=== PATIENT | female | born 1965 | race Caucasian/White ===

== ENCOUNTER 2018-03-20 10:23 | Inpatient (IN) ==
[2018-03-20] MEDS ORDERED: MORPHINE 4 MG/1 ML VIAL IV STA (10:48)
[2018-03-20] MEDS ORDERED: ONDANSETRON 4 MG/2 ML VIAL IV STA (10:48)
[2018-03-20] MEDS ORDERED: NITROGLYCERIN 2% OINT 1 INCH/GM PACK TOP STA (10:48)
[2018-03-20 10:56] LABS: Basophils # 0.1 10*3/uL (0.0-0.2); Basophils % 0.6 % (0.0-0.8); Eosinophils # 0.1 10*3/uL (0.0-0.87); Eosinophils % 1.2 % (0.00-10.9); Hematocrit 44.6 VOL% (35.7-47.0); Hemoglobin 15.3 GM/DL (12.0-16.0); Immature Granulocytes % 0.4 %; Immature Granulocytes Absolute 0.05 #; Lymphocytes # 2.8 10*3/uL (1.4-4.0); Lymphocytes % 24.7 % (21.3-54.2); Mean Corpuscular HGB Conc 34.3 GM/DL (32-36); Mean Corpuscular Hemoglobin 30 PG (27-34); Mean Corpuscular Volume 86.9 FL (87-102); Mean Platelet Volume 9.6 FL (9.6-12.0); Monocytes # 0.9 10*3/uL (0.11-0.8); Monocytes % 8.2 % (1.7-12.7); Neutrophils # 7.4 10*3/uL (1.4-7.4); Neutrophils % 64.9 % (38.7-73.9); Platelet Count 255 T/CUMM (130-400); Red Blood Count 5.13 MC/CUMM (3.8-5.5); Red Cell Distribution Width 12.3 % (9.3-17.3); White Blood Count 11.4 T/CUMM (4-12)
[2018-03-20 11:05] LABS: PT Patient Result 10.2 SECS; Partial Thromboplastin Time 28.7 SECS (0-40)
[2018-03-20 11:23] LABS: Albumin 4.2 G/DL (3.4-5.0); Apearance,Urine Slightly Hazy (Clear); Bacteria,Urine Few /HPF (Few); Bilirubin,Total 1.4 MG/DL (0.2-1.0); Bilirubin,Urine Negative (Negative); Blood, Urine Small mg/dL (Negative); Glucose,Urine (UA) Negative (Negative); Ketones,Urine Negative (Negative); Mucus,Urine Occasional /LPF (Occasional); Nitrite,Urine Negative (Negative); Osmolality,Calculated 269.2 MOS/KG (273-304); Potassium 3.8 MMOL/L (3.5-5.1); Protein,Urine Negative; RBC,Urine 3 /HPF (0-4); Squamous Epithelial Cell,Urine Occasional /HPF (0-10); Total Protein 8.1 G/DL (6.4-8.3); Urine Color Yellow (Yellow); Urine Specific Gravity 1.018 (1.001-1.035); Urine Urobilinogen < 2.0 EU/DL (0.2-1.0); WBC,Urine 5 /HPF (0-6)
[2018-03-20 11:27] LABS: Barbiturates Screen,Urine Negative (Negative); Benzodiazepines Screen,Urine Negative (Negative); Cannabinoid Screen,Urine Negative (Negative); Opiate Screen,Urine Negative (Negative); Phencyclidine Screen,Urine Negative (Negative)
[2018-03-20] MEDS ORDERED: ACETAMINOPHEN 325 MG TABLET PO PRN (14:42)
[2018-03-20] MEDS: SODIUM CHLORIDE 0.9% 1,000 ML IV SCH ×2 (14:59→22:35)
[2018-03-20] MEDS: HYDROmorphone 2 MG/1 ML VIAL IV PRN (18:22)
[2018-03-20] MEDS: ONDANSETRON 4 MG/2 ML VIAL IV PRN (18:27)
[2018-03-20] MEDS: DOCUSATE SODIUM 100 MG CAPSULE PO SCH (20:46)
[2018-03-20] MEDS: PANTOPRAZOLE 40 MG VIAL IV SCH (20:46)
[2018-03-21] MEDS: HYDROmorphone 2 MG/1 ML VIAL IV PRN ×4 (01:24→18:55)
[2018-03-21 05:47] LABS: Albumin 3.1 G/DL (3.4-5.0); Basophils # 0.1 10*3/uL (0.0-0.2); Basophils % 0.7 % (0.0-0.8); Bilirubin,Direct 0.23 MG/DL (0.0-0.20); Bilirubin,Indirect 0.9 MG/DL (0.0-1.0); Bilirubin,Total 1.1 MG/DL (0.2-1.0); Calcium 8.2 MG/DL (8.5-10.1); Eosinophils # 0.2 10*3/uL (0.0-0.87); Eosinophils % 2.6 % (0.00-10.9); Hematocrit 35.8 VOL% (35.7-47.0); Immature Granulocytes % 0.3 %; Immature Granulocytes Absolute 0.02 #; Lymphocytes # 2.6 10*3/uL (1.4-4.0); Lymphocytes % 34.1 % (21.3-54.2); Mean Corpuscular HGB Conc 34.6 GM/DL (32-36); Mean Corpuscular Hemoglobin 30 PG (27-34); Mean Corpuscular Volume 87.7 FL (87-102); Mean Platelet Volume 10.3 FL (9.6-12.0); Monocytes # 0.8 10*3/uL (0.11-0.8); Monocytes % 10.4 % (1.7-12.7); Neutrophils # 3.9 10*3/uL (1.4-7.4); Neutrophils % 51.9 % (38.7-73.9); Osmolality,Calculated 273.8 MOS/KG (273-304); Potassium 3.7 MMOL/L (3.5-5.1); Red Cell Distribution Width 12.1 % (9.3-17.3); Total Protein 6.1 G/DL (6.4-8.3)
[2018-03-21 05:49] LABS: Hemoglobin 12.4 GM/DL (12.0-16.0); Platelet Count 180 T/CUMM (130-400); Red Blood Count 4.08 MC/CUMM (3.8-5.5); White Blood Count 7.6 T/CUMM (4-12)
[2018-03-21] MEDS: SODIUM CHLORIDE 0.9% 1,000 ML IV SCH ×2 (08:25→15:47)
[2018-03-21] MEDS ORDERED: PANTOPRAZOLE 40 MG TABLET PO SCH (09:00)
[2018-03-21] MEDS: DOCUSATE SODIUM 100 MG CAPSULE PO SCH ×2 (09:27→21:00)
[2018-03-21] MEDS: LISINOPRIL/HCTZ 20-12.5 MG TABLET PO SCH (09:27)
[2018-03-21] MEDS: PANTOPRAZOLE 40 MG VIAL IV SCH ×2 (09:27→21:00)
[2018-03-22] MEDS: SODIUM CHLORIDE 0.9% 1,000 ML IV SCH ×3 (00:07→16:21)
[2018-03-22] MEDS: HYDROmorphone 2 MG/1 ML VIAL IV PRN ×4 (00:11→21:26)
[2018-03-22] MEDS: DOCUSATE SODIUM 100 MG CAPSULE PO SCH ×2 (09:08→21:15)
[2018-03-22] MEDS: LISINOPRIL/HCTZ 20-12.5 MG TABLET PO SCH (09:08)
[2018-03-22] MEDS: PANTOPRAZOLE 40 MG VIAL IV SCH ×2 (09:08→21:15)
[2018-03-22] MEDS: ONDANSETRON 4 MG/2 ML VIAL IV PRN (21:30)
[2018-03-23] MEDS ORDERED: PROPOFOL 200 MG/20 ML VIAL IV ONE (09:00)
[2018-03-23] MEDS ORDERED: LIDOCAINE 100 MG/5 ML SYRINGE ONE (09:00)
[2018-03-23] MEDS: PANTOPRAZOLE 40 MG VIAL IV SCH (09:31)
[2018-03-23] MEDS: LISINOPRIL/HCTZ 20-12.5 MG TABLET PO SCH (09:31)
[2018-03-23] MEDS: DOCUSATE SODIUM 100 MG CAPSULE PO SCH (09:31)
[2018-03-23 13:47] VITALS: BP 172/088
== END 2018-03-23 15:12 | disposition home or self-care (01) | DRG 440 ==
LOC: N.ED 10:23 → N.EDINP 10:23 → N.2W 14:43 → N.TELES 14:45
PROVIDERS: ADMIT Family Medicine; ATTEND Family Medicine

== ENCOUNTER 2018-10-01 13:13 | Observation (INO) ==
[2018-10-01] MEDS ORDERED: PROMETHAZINE 25 MG/1 ML VIAL IM PRN (13:18)
[2018-10-01] MEDS ORDERED: DEXTROSE 50% 25 GM/50 ML SYRINGE IV PRN (13:18)
[2018-10-01] MEDS ORDERED: GLUCAGON 1 MG VIAL IM PRN (13:18)
[2018-10-01] MEDS ORDERED: ACETAMINOPHEN 325 MG TABLET PO PRN (13:18)
[2018-10-01] MEDS: PANTOPRAZOLE 40 MG VIAL IV SCH ×2 (14:44→20:37)
[2018-10-01] MEDS: ONDANSETRON 4 MG/2 ML VIAL IV PRN ×2 (14:51→20:39)
[2018-10-01] MEDS ORDERED: DEXTROSE 5% NACL 0.9% 1,000 ML IV SCH (15:00)
[2018-10-01 15:24] LABS: Basophils # 0.1 10*3/uL (0.0-0.2); Basophils % 0.6 % (0.0-0.8); Eosinophils # 0.1 10*3/uL (0.0-0.87); Eosinophils % 0.9 % (0.00-10.9); Hematocrit 39.1 VOL% (35.7-47.0); Hemoglobin 13.1 GM/DL (12.0-16.0); Immature Granulocytes % 0.7 %; Immature Granulocytes Absolute 0.09 #; Lymphocytes # 2.4 10*3/uL (1.4-4.0); Lymphocytes % 18.8 % (21.3-54.2); Mean Corpuscular HGB Conc 33.5 GM/DL (32-36); Mean Corpuscular Hemoglobin 29 PG (27-34); Mean Corpuscular Volume 86.7 FL (87-102); Mean Platelet Volume 10.2 FL (9.6-12.0); Monocytes # 1.1 10*3/uL (0.11-0.8); Monocytes % 8.7 % (1.7-12.7); Neutrophils % 70.3 % (38.7-73.9); Platelet Count 324 T/CUMM (130-400); Red Blood Count 4.51 MC/CUMM (3.8-5.5); Red Cell Distribution Width 12.1 % (9.3-17.3); White Blood Count 12.7 T/CUMM (4-12)
[2018-10-01] MEDS: HYDROmorphone 2 MG/1 ML VIAL IV PRN ×2 (15:30→20:38)
[2018-10-01 15:44] LABS: Albumin 3.4 G/DL (3.4-5.0); Bilirubin,Total 1.4 MG/DL (0.2-1.0); Calcium 9.4 MG/DL (8.5-10.1); Osmolality,Calculated 268.7 MOS/KG (273-304); Potassium 2.9 MMOL/L (3.5-5.1); Total Protein 7.6 G/DL (6.4-8.3)
[2018-10-01] MEDS: POTASSIUM CHLORIDE INJ 40 MEQ in DEXTROSE 5% 1,000 ML IV SCH (16:42)
[2018-10-01] MEDS: cefTRIAXone 1,000 MG in SYRINGE 1 EACH IV SCH (16:42)
[2018-10-01 17:12] LABS: Apearance,Urine Slightly Hazy (Clear); Bacteria,Urine Occasional /HPF (Few); Bilirubin,Urine Negative (Negative); Blood, Urine Small mg/dL (Negative); Glucose,Urine (UA) 150 mg/dL (Negative); Hyaline Casts,Urine 4 /LPF (0-3); Ketones,Urine Negative (Negative); Mucus,Urine Occasional /LPF (Occasional); Nitrite,Urine Negative (Negative); Protein,Urine Negative; Squamous Epithelial Cell,Urine Occasional /HPF (0-10); Urine Color Yellow (Yellow); Urine Specific Gravity 1.005 (1.001-1.035); Urine Urobilinogen < 2.0 EU/DL (0.2-1.0); WBC,Urine 45 /HPF (0-6)
[2018-10-01] MEDS: INSULIN LISPRO 100 UNIT/ML SUBCUT SCH ×2 (17:19→20:44)
[2018-10-01] MEDS ORDERED: ENOXAPARIN 40 MG/0.4 ML SYRINGE SUBCUT SCH (21:00)
[2018-10-02] MEDS: POTASSIUM CHLORIDE INJ 40 MEQ in DEXTROSE 5% 1,000 ML IV SCH ×2 (00:55→08:47)
[2018-10-02] MEDS: HYDROmorphone 2 MG/1 ML VIAL IV PRN (02:03)
[2018-10-02] MEDS: ONDANSETRON 4 MG/2 ML VIAL IV PRN (02:04)
[2018-10-02 07:36] VITALS: BP 102/66
[2018-10-02] MEDS: INSULIN LISPRO 100 UNIT/ML SUBCUT SCH (07:42)
[2018-10-02] MEDS: PANTOPRAZOLE 40 MG VIAL IV SCH (08:44)
[2018-10-02] MEDS: cefTRIAXone 1,000 MG in SYRINGE 1 EACH IV SCH (08:47)
[2018-10-02] MEDS ORDERED: PANTOPRAZOLE 40 MG TABLET PO SCH (09:00)
== END 2018-10-02 11:13 | disposition home or self-care (01) ==
LOC: N.2E
PROVIDERS: ADMIT Family Medicine; ATTEND Family Medicine

== ENCOUNTER 2019-05-11 21:24 | Inpatient (IN) ==
[2019-05-11] MEDS ORDERED: SODIUM CHLORIDE 0.9% 1,000 ML IV STA (21:46)
[2019-05-11] MEDS ORDERED: ONDANSETRON 4 MG/2 ML VIAL IV STA (21:46)
[2019-05-11] MEDS ORDERED: HYDROmorphone 2 MG/1 ML VIAL IV STA ×2 (21:46→22:29)
[2019-05-11 23:48] LABS: Basophils # 0.1 10*3/uL (0.0-0.2); Basophils % 0.4 % (0.0-0.8); Eosinophils # 0.1 10*3/uL (0.0-0.87); Eosinophils % 0.5 % (0.00-10.9); Hematocrit 32.8 VOL% (35.7-47.0); Hemoglobin 10.2 GM/DL (12.0-16.0); Immature Granulocytes % 0.4 %; Immature Granulocytes Absolute 0.06 #; Lymphocytes # 1.2 10*3/uL (1.4-4.0); Lymphocytes % 8.7 % (21.3-54.2); Mean Corpuscular HGB Conc 31.1 GM/DL (32-36); Mean Corpuscular Volume 80.6 FL (87-102); Mean Platelet Volume 9.8 FL (9.6-12.0); Monocytes % 1.4 % (1.7-12.7); Neutrophils % 88.6 % (38.7-73.9); Platelet Count 763 T/CUMM (130-400); Red Blood Count 4.07 MC/CUMM (3.8-5.5); Red Cell Distribution Width 15.4 % (9.3-17.3); White Blood Count 13.6 T/CUMM (4-12)
[2019-05-12 00:07] LABS: Albumin 3.6 G/DL (3.4-5.0); Bilirubin,Total 0.6 MG/DL (0.2-1.0); Calcium 8.9 MG/DL (8.5-10.1); Osmolality,Calculated 279.3 MOS/KG (273-304); Total Protein 6.7 G/DL (6.4-8.3)
[2019-05-12] MEDS ORDERED: HYDROmorphone 2 MG/1 ML VIAL IV STA ×2 (00:28→02:02)
[2019-05-12] MEDS ORDERED: ONDANSETRON 4 MG/2 ML VIAL IV PRN ×2 (01:22→11:56)
[2019-05-12] MEDS: DEXTROSE 5% NACL 0.9% 1,000 ML IV SCH ×3 (02:57→20:42)
[2019-05-12] MEDS: HYDROmorphone 2 MG/1 ML VIAL IV PRN ×2 (05:24→09:20)
[2019-05-12] MEDS: DOCUSATE SODIUM 100 MG CAPSULE PO SCH ×2 (09:18→20:40)
[2019-05-12] MEDS: PANTOPRAZOLE 40 MG VIAL IV SCH (09:19)
[2019-05-12] MEDS: oxyCODONE ER 40 MG TABLET PO SCH ×2 (09:22→20:41)
[2019-05-12] MEDS ORDERED: HYDROmorphone 2 MG/1 ML VIAL IV ONE (11:53)
[2019-05-12] MEDS ORDERED: NALOXONE 0.4 MG/ML VIAL IV PRN (11:54)
[2019-05-12] MEDS ORDERED: chlorproMAZINE INJ 50 MG in SODIUM CHLORIDE 0.9% 100 ML IV PRN (11:56)
[2019-05-12] MEDS ORDERED: MYLANTA/LIDO VISC 2:1 300 ML BOTTLE SWISH/SPIT PRN (11:56)
[2019-05-12] MEDS ORDERED: diphenhydrAMINE CAP 25 MG CAPSULE PO PRN (11:56)
[2019-05-12] MEDS ORDERED: traMADol 50 MG TABLET PO PRN (11:56)
[2019-05-12] MEDS ORDERED: chlorproMAZINE 25 MG TABLET PO PRN (11:56)
[2019-05-12] MEDS ORDERED: MAGNESIUM HYDROXIDE SUSP 30 ML UDCUP PO PRN (11:56)
[2019-05-12] MEDS ORDERED: guaiFENesin 200 MG/10 ML UDCUP PO PRN (11:56)
[2019-05-12] MEDS ORDERED: MYLANTA/LIDO VISC 2:1 300 ML BOTTLE SWISH/SWAL PRN (11:56)
[2019-05-12] MEDS ORDERED: TEMAZEPAM 7.5 MG CAPSULE PO PRN (11:56)
[2019-05-12] MEDS ORDERED: BENZTROPINE 2 MG/2 ML AMP IV PRN (11:56)
[2019-05-12] MEDS ORDERED: ACETAMINOPHEN 325 MG TABLET PO PRN (11:56)
[2019-05-12] MEDS ORDERED: LACTULOSE 20 GM/30 ML UDCUP PO PRN (11:56)
[2019-05-12] MEDS ORDERED: ALPRAZolam 0.25 MG TABLET PO PRN (11:56)
[2019-05-12] MEDS ORDERED: ALUMINUM/MAGNES/SIMETH MAX STR 30 ML UDCUP PO PRN (11:56)
[2019-05-12] MEDS ORDERED: chlorproMAZINE INJ 25 MG in SODIUM CHLORIDE 0.9% 100 ML IV PRN (11:56)
[2019-05-12] MEDS ORDERED: PROMETHAZINE INJ 25 MG in SODIUM CHLORIDE 0.9% 50 ML IV PRN (11:56)
[2019-05-12] MEDS ORDERED: LOPERAMIDE 2 MG CAPSULE PO PRN ×2 (11:56)
[2019-05-12] MEDS: HYDROmorphone PCA 30 MG/30 ML SYRINGE IV SCH (12:51)
[2019-05-12] MEDS: DOXEPIN 25 MG CAPSULE PO SCH (20:40)
[2019-05-12] MEDS: PREGABALIN 75 MG CAPSULE PO SCH (20:41)
[2019-05-12] MEDS: METOPROLOL TARTRATE 25 MG TABLET PO SCH (20:41)
[2019-05-13] MEDS: DEXTROSE 5% NACL 0.9% 1,000 ML IV SCH ×2 (01:30→05:30)
[2019-05-13 04:35] LABS: Basophils # 0.1 10*3/uL (0.0-0.2); Basophils % 0.6 % (0.0-0.8); Eosinophils # 0.2 10*3/uL (0.0-0.87); Eosinophils % 1.7 % (0.00-10.9); Hematocrit 32.2 VOL% (35.7-47.0); Hemoglobin 10.1 GM/DL (12.0-16.0); Immature Granulocytes % 0.2 %; Immature Granulocytes Absolute 0.02 #; Lymphocytes % 17.9 % (21.3-54.2); Mean Corpuscular HGB Conc 31.4 GM/DL (32-36); Mean Corpuscular Volume 80.7 FL (87-102); Mean Platelet Volume 9.6 FL (9.6-12.0); Monocytes % 1.2 % (1.7-12.7); Neutrophils % 78.4 % (38.7-73.9); Platelet Count 705 T/CUMM (130-400); Red Blood Count 3.99 MC/CUMM (3.8-5.5); Red Cell Distribution Width 15.5 % (9.3-17.3)
[2019-05-13 04:55] LABS: Hypochromasia 1+; Platelet Estimate Increased
[2019-05-13 05:18] LABS: Albumin 2.8 G/DL (3.4-5.0); Bilirubin,Total 0.6 MG/DL (0.2-1.0); Calcium 8.7 MG/DL (8.5-10.1); Osmolality,Calculated 279.4 MOS/KG (273-304); Total Protein 6.5 G/DL (6.4-8.3)
[2019-05-13] MEDS: HYDROmorphone PCA 30 MG/30 ML SYRINGE IV SCH ×2 (07:36→12:05)
[2019-05-13] MEDS: DEXT 5% NACL 0.45% KCL 40 MEQ 40 MEQ/1,000 ML BAG IV SCH ×2 (08:28→17:33)
[2019-05-13] MEDS: oxyCODONE ER 40 MG TABLET PO SCH ×2 (08:29→21:41)
[2019-05-13] MEDS: PANTOPRAZOLE 40 MG VIAL IV SCH (08:29)
[2019-05-13] MEDS: METOPROLOL TARTRATE 25 MG TABLET PO SCH ×2 (08:29→21:40)
[2019-05-13] MEDS: POTASSIUM CHLORIDE 20 MEQ TABLET PO SCH ×2 (08:29→21:42)
[2019-05-13] MEDS: DOCUSATE SODIUM 100 MG CAPSULE PO SCH ×2 (08:29→21:40)
[2019-05-13] MEDS: PREGABALIN 75 MG CAPSULE PO SCH ×2 (08:33→21:42)
[2019-05-13] MEDS: hydrALAZINE 20 MG/1 ML VIAL IV PRN (12:14)
[2019-05-13] MEDS: DOXEPIN 25 MG CAPSULE PO SCH (21:41)
[2019-05-14] MEDS: HYDROmorphone PCA 30 MG/30 ML SYRINGE IV SCH ×2 (01:31→18:03)
[2019-05-14] MEDS: HYDROmorphone 2 MG/1 ML VIAL IV PRN (01:40)
[2019-05-14] MEDS: DEXT 5% NACL 0.45% KCL 40 MEQ 40 MEQ/1,000 ML BAG IV SCH ×2 (02:58→14:07)
[2019-05-14 06:08] LABS: Basophils # 0.1 10*3/uL (0.0-0.2); Basophils % 0.5 % (0.0-0.8); Eosinophils # 0.3 10*3/uL (0.0-0.87); Eosinophils % 2.5 % (0.00-10.9); Hematocrit 32.2 VOL% (35.7-47.0); Immature Granulocytes % 0.5 %; Immature Granulocytes Absolute 0.05 #; Lymphocytes # 2.7 10*3/uL (1.4-4.0); Lymphocytes % 25.3 % (21.3-54.2); Mean Corpuscular HGB Conc 31.1 GM/DL (32-36); Mean Corpuscular Volume 81.7 FL (87-102); Mean Platelet Volume 9.1 FL (9.6-12.0); Monocytes % 1.2 % (1.7-12.7); Platelet Count 572 T/CUMM (130-400); Red Blood Count 3.94 MC/CUMM (3.8-5.5); Red Cell Distribution Width 15.5 % (9.3-17.3); White Blood Count 10.8 T/CUMM (4-12)
[2019-05-14 06:33] LABS: Alanine Aminotransferase 32 U/L (13-56); Albumin 3.1 G/DL (3.4-5.0); Alkaline Phosphatase 152 U/L (45-117); Aspartate Amino Transferase 22 U/L (0-37); Bilirubin,Total < 0.39 MG/DL (0.2-1.0); Blood Urea Nitrogen 2 MG/DL (7-18); Calcium 9.2 MG/DL (8.5-10.1); Estimated Glom Filtration Rate 97 ML/MIN; Glucose 150 MG/DL (74-106); Osmolality,Calculated 279.3 MOS/KG (273-304); Total Protein 7.1 G/DL (6.4-8.3)
[2019-05-14] MEDS: PANTOPRAZOLE 40 MG VIAL IV SCH (09:04)
[2019-05-14] MEDS: DOCUSATE SODIUM 100 MG CAPSULE PO SCH ×2 (09:11→21:44)
[2019-05-14] MEDS: POTASSIUM CHLORIDE 20 MEQ TABLET PO SCH ×2 (09:11→21:44)
[2019-05-14] MEDS: oxyCODONE ER 40 MG TABLET PO SCH ×2 (09:12→21:45)
[2019-05-14] MEDS: PREGABALIN 75 MG CAPSULE PO SCH ×2 (09:13→21:44)
[2019-05-14] MEDS: METOPROLOL TARTRATE 25 MG TABLET PO SCH ×2 (09:19→21:44)
[2019-05-14 09:58] LABS: PT Patient Result 10.5 SECS (9.6-12.2)
[2019-05-14] MEDS: hydrALAZINE 20 MG/1 ML VIAL IV PRN (10:52)
[2019-05-14] MEDS: DOXEPIN 25 MG CAPSULE PO SCH (21:44)
[2019-05-15] MEDS: DEXT 5% NACL 0.45% KCL 40 MEQ 40 MEQ/1,000 ML BAG IV SCH ×5 (00:17→19:29)
[2019-05-15] MEDS: POTASSIUM CHLORIDE 20 MEQ TABLET PO SCH ×2 (08:26→21:31)
[2019-05-15] MEDS: PREGABALIN 75 MG CAPSULE PO SCH ×2 (08:26→21:30)
[2019-05-15] MEDS: oxyCODONE ER 40 MG TABLET PO SCH ×2 (08:26→21:31)
[2019-05-15] MEDS: DOCUSATE SODIUM 100 MG CAPSULE PO SCH ×2 (08:26→21:30)
[2019-05-15] MEDS: METOPROLOL TARTRATE 25 MG TABLET PO SCH ×2 (08:26→21:30)
[2019-05-15] MEDS: PANTOPRAZOLE 40 MG VIAL IV SCH (08:27)
[2019-05-15] MEDS: HYDROmorphone PCA 30 MG/30 ML SYRINGE IV SCH ×2 (08:28→14:32)
[2019-05-15] MEDS ORDERED: DEXAMETHASONE INJ 20 MG in SODIUM CHLORIDE 0.9% 50 ML IV ONE (08:58)
[2019-05-15] MEDS ORDERED: LIDOCAINE 2% 5 ML VIAL ONE ×2 (10:31→12:05)
[2019-05-15] MEDS ORDERED: LACTATED RINGERS 1,000 ML IV SCH (11:30)
[2019-05-15] MEDS ORDERED: PROPOFOL 200 MG/20 ML VIAL IV ONE (12:05)
[2019-05-15] MEDS ORDERED: fentaNYL 100 MCG/2 ML VIAL ONE (12:06)
[2019-05-15] MEDS ORDERED: LABETALOL 100 MG/20 ML VIAL IV ONE (12:06)
[2019-05-15] MEDS ORDERED: ETOMIDATE 40 MG/20 ML VIAL IV ONE (12:06)
[2019-05-15] MEDS: GRANISETRON 1 MG/1 ML VIAL IV SCH (13:32)
[2019-05-15] MEDS: fentaNYL 75 MCG/HR PATCH TRANSDERM SCH (18:15)
[2019-05-15] MEDS: DOXEPIN 25 MG CAPSULE PO SCH (21:31)
[2019-05-16] MEDS: DEXT 5% NACL 0.45% KCL 40 MEQ 40 MEQ/1,000 ML BAG IV SCH ×3 (03:06→23:40)
[2019-05-16] MEDS: HYDROmorphone PCA 30 MG/30 ML SYRINGE IV SCH ×2 (04:22→18:11)
[2019-05-16 04:39] LABS: Basophils % 0.8 % (0.0-0.8); Eosinophils # 0.1 10*3/uL (0.0-0.87); Eosinophils % 1.3 % (0.00-10.9); Hematocrit 34.7 VOL% (35.7-47.0); Hemoglobin 10.7 GM/DL (12.0-16.0); Immature Granulocytes % 0.6 %; Immature Granulocytes Absolute 0.03 #; Lymphocytes # 2.6 10*3/uL (1.4-4.0); Lymphocytes % 48.8 % (21.3-54.2); Mean Corpuscular HGB Conc 30.8 GM/DL (32-36); Mean Corpuscular Volume 80.5 FL (87-102); Mean Platelet Volume 9.3 FL (9.6-12.0); Monocytes % 11.1 % (1.7-12.7); NRBC # 0.18 10*3/uL; Neutrophils % 37.4 % (38.7-73.9); Platelet Count 401 T/CUMM (130-400); Red Blood Count 4.31 MC/CUMM (3.8-5.5); Red Cell Distribution Width 15.5 % (9.3-17.3); White Blood Count 5.3 T/CUMM (4-12)
[2019-05-16 05:09] LABS: Eosinophils 2 % (0-10); Hypochromasia 1+; Lymphocytes 46 % (20-55); Nucleated Red Blood Cells 4 (0-5); Platelet Estimate Adequate; Segmented Neutrophils 36 % (50-85); Total Cells Counted 100
[2019-05-16 05:11] LABS: Atypical Lymphocytes Few
[2019-05-16 07:51] LABS: Albumin 3.4 G/DL (3.4-5.0); Bilirubin,Total 0.8 MG/DL (0.2-1.0); Calcium 9.6 MG/DL (8.5-10.1); Osmolality,Calculated 273.8 MOS/KG (273-304); Total Protein 7.6 G/DL (6.4-8.3)
[2019-05-16] MEDS ORDERED: GEMCITABINE IV ONE (09:00)
[2019-05-16] MEDS ORDERED: SODIUM CHLORIDE 0.9% IV ONE (09:00)
[2019-05-16] MEDS: METOPROLOL TARTRATE 25 MG TABLET PO SCH ×2 (09:54→20:58)
[2019-05-16] MEDS: DOCUSATE SODIUM 100 MG CAPSULE PO SCH ×2 (09:54→20:58)
[2019-05-16] MEDS: DULoxetine 30 MG CAPSULE PO SCH (09:54)
[2019-05-16] MEDS: oxyCODONE ER 40 MG TABLET PO SCH ×2 (09:54→20:58)
[2019-05-16] MEDS: POTASSIUM CHLORIDE 20 MEQ TABLET PO SCH ×2 (09:54→20:58)
[2019-05-16] MEDS: PREGABALIN 75 MG CAPSULE PO SCH ×2 (09:54→20:57)
[2019-05-16] MEDS: PANTOPRAZOLE 40 MG VIAL IV SCH (09:55)
[2019-05-16] MEDS: GRANISETRON 1 MG/1 ML VIAL IV SCH (09:57)
[2019-05-16] MEDS: DEXAMETHASONE INJ 20 MG in SODIUM CHLORIDE 0.9% 50 ML IV ONE ×2 (09:59→14:07)
[2019-05-16] MEDS ORDERED: DEXAMETHASONE INJ 20 MG in SODIUM CHLORIDE 0.9% 50 ML IV ONE (10:30)
[2019-05-16] MEDS: HYDROmorphone 2 MG/1 ML VIAL IV PRN ×2 (18:37→22:49)
[2019-05-17] MEDS: DEXT 5% NACL 0.45% KCL 40 MEQ 40 MEQ/1,000 ML BAG IV SCH ×4 (01:20→22:17)
[2019-05-17] MEDS: HYDROmorphone 2 MG/1 ML VIAL IV PRN ×4 (05:35→22:37)
[2019-05-17] MEDS: oxyCODONE ER 40 MG TABLET PO SCH ×2 (08:57→20:33)
[2019-05-17] MEDS: PANTOPRAZOLE 40 MG VIAL IV SCH (08:57)
[2019-05-17] MEDS: GRANISETRON 1 MG/1 ML VIAL IV SCH (08:57)
[2019-05-17] MEDS: DULoxetine 30 MG CAPSULE PO SCH (08:58)
[2019-05-17] MEDS: METOPROLOL TARTRATE 25 MG TABLET PO SCH ×2 (08:58→20:33)
[2019-05-17] MEDS: DOCUSATE SODIUM 100 MG CAPSULE PO SCH ×2 (08:58→20:33)
[2019-05-17] MEDS: POTASSIUM CHLORIDE 20 MEQ TABLET PO SCH ×2 (08:59→20:33)
[2019-05-17] MEDS: PREGABALIN 75 MG CAPSULE PO SCH ×2 (08:59→20:33)
[2019-05-17] MEDS ORDERED: MAGNESIUM SULF RIDER 2 GM in PREMIX 1 EACH IV PRN (10:29)
[2019-05-17] MEDS ORDERED: MAGNESIUM SULF RIDER 4 GM in PREMIX 1 EACH IV PRN (10:29)
[2019-05-18] MEDS: HYDROmorphone 2 MG/1 ML VIAL IV PRN ×4 (03:13→20:09)
[2019-05-18] MEDS: DEXT 5% NACL 0.45% KCL 40 MEQ 40 MEQ/1,000 ML BAG IV SCH ×3 (03:13→17:42)
[2019-05-18] MEDS: GRANISETRON 1 MG/1 ML VIAL IV SCH (08:35)
[2019-05-18] MEDS: PANTOPRAZOLE 40 MG VIAL IV SCH (08:36)
[2019-05-18] MEDS: POTASSIUM CHLORIDE 20 MEQ TABLET PO SCH ×2 (08:37→21:27)
[2019-05-18] MEDS: oxyCODONE ER 40 MG TABLET PO SCH ×2 (08:37→21:27)
[2019-05-18] MEDS: DULoxetine 30 MG CAPSULE PO SCH (08:37)
[2019-05-18] MEDS: PREGABALIN 75 MG CAPSULE PO SCH ×2 (08:38→20:08)
[2019-05-18] MEDS: DOCUSATE SODIUM 100 MG CAPSULE PO SCH ×2 (08:38→20:08)
[2019-05-18] MEDS: METOPROLOL TARTRATE 25 MG TABLET PO SCH ×2 (08:38→20:08)
[2019-05-18] MEDS: fentaNYL 75 MCG/HR PATCH TRANSDERM SCH (12:28)
[2019-05-18] MEDS ORDERED: BISACODYL 10 MG SUPP RECTAL ONE (17:40)
[2019-05-19] MEDS: DEXT 5% NACL 0.45% KCL 40 MEQ 40 MEQ/1,000 ML BAG IV SCH ×3 (00:19→14:40)
[2019-05-19] MEDS: HYDROmorphone 2 MG/1 ML VIAL IV PRN ×3 (00:23→22:57)
[2019-05-19] MEDS: PANTOPRAZOLE 40 MG VIAL IV SCH (08:25)
[2019-05-19] MEDS: GRANISETRON 1 MG/1 ML VIAL IV SCH (08:25)
[2019-05-19] MEDS: oxyCODONE ER 40 MG TABLET PO SCH (08:26)
[2019-05-19] MEDS: DOCUSATE SODIUM 100 MG CAPSULE PO SCH ×2 (08:26→21:33)
[2019-05-19] MEDS: DULoxetine 30 MG CAPSULE PO SCH (08:26)
[2019-05-19] MEDS: POTASSIUM CHLORIDE 20 MEQ TABLET PO SCH ×2 (08:27→21:31)
[2019-05-19] MEDS: METOPROLOL TARTRATE 25 MG TABLET PO SCH ×2 (08:27→21:33)
[2019-05-19] MEDS: PREGABALIN 75 MG CAPSULE PO SCH ×2 (08:28→21:32)
[2019-05-19] MEDS ORDERED: BISACODYL 10 MG SUPP RECTAL PRN (17:40)
[2019-05-19] MEDS ORDERED: oxyCODONE ER 40 MG TABLET PO SCH (23:45)
[2019-05-20] MEDS: DEXT 5% NACL 0.45% KCL 40 MEQ 40 MEQ/1,000 ML BAG IV SCH ×2 (00:27→10:55)
[2019-05-20 08:36] VITALS: BP 151/100
[2019-05-20] MEDS: DULoxetine 30 MG CAPSULE PO SCH (09:26)
[2019-05-20] MEDS: PREGABALIN 75 MG CAPSULE PO SCH (09:26)
[2019-05-20] MEDS: METOPROLOL TARTRATE 25 MG TABLET PO SCH (09:26)
[2019-05-20] MEDS: POTASSIUM CHLORIDE 20 MEQ TABLET PO SCH (09:26)
[2019-05-20] MEDS: HYDROmorphone 2 MG/1 ML VIAL IV PRN (09:27)
[2019-05-20] MEDS: PANTOPRAZOLE 40 MG VIAL IV SCH (09:27)
[2019-05-20] MEDS: GRANISETRON 1 MG/1 ML VIAL IV SCH (09:32)
[2019-05-20] MEDS: DOCUSATE SODIUM 100 MG CAPSULE PO SCH (09:37)
== END 2019-05-20 11:01 | disposition home health service (06) | DRG 477 ==
LOC: N.ED 21:24 → N.EDINP 21:24 → SUATTDRO 05-12 01:22 → N.4E 05-12 01:59
PROVIDERS: ADMIT Family Medicine; ATTEND Family Medicine

== ENCOUNTER 2019-07-05 17:35 | Inpatient (IN) ==
[2019-07-05] MEDS ORDERED: ONDANSETRON 4 MG/2 ML VIAL IV ONE (18:42)
[2019-07-05] MEDS ORDERED: SODIUM CHLORIDE 0.9% 1,000 ML IV STA (18:42)
[2019-07-05] MEDS ORDERED: LORazepam 2 MG/1 ML VIAL ONE (18:42)
[2019-07-05] MEDS ORDERED: LORazepam 2 MG/1 ML VIAL IV STA (18:42)
[2019-07-05 18:49] LABS: Basophils % 0.3 % (0.0-0.8); Eosinophils # 0.1 10*3/uL (0.0-0.87); Eosinophils % 0.4 % (0.00-10.9); Hematocrit 32.5 VOL% (35.7-47.0); Hemoglobin 10.5 GM/DL (12.0-16.0); Immature Granulocytes % 0.4 %; Immature Granulocytes Absolute 0.05 #; Lymphocytes # 2.2 10*3/uL (1.4-4.0); Lymphocytes % 18.2 % (21.3-54.2); Mean Corpuscular HGB Conc 32.3 GM/DL (32-36); Mean Corpuscular Volume 81.9 FL (87-102); Monocytes % 11.1 % (1.7-12.7); Neutrophils % 69.6 % (38.7-73.9); Platelet Count 435 T/CUMM (130-400); Red Blood Count 3.97 MC/CUMM (3.8-5.5); Red Cell Distribution Width 19.8 % (9.3-17.3); White Blood Count 12.3 T/CUMM (4-12)
[2019-07-05 18:58] LABS: PT Patient Result 11.2 SECS (9.6-12.2)
[2019-07-05 19:00] LABS: Apearance,Urine CLOUDY (Clear); Bacteria,Urine Few /HPF (Few); Bilirubin,Urine Negative (Negative); Blood, Urine Small mg/dL (Negative); Glucose,Urine (UA) Negative (Negative); Ketones,Urine 20 mg/dL (Negative); Mucus,Urine Occasional /LPF (Occasional); Nitrite,Urine Negative (Negative); Protein,Urine Negative; RBC,Urine 3 /HPF (0-4); Squamous Epithelial Cell,Urine Occasional /HPF (0-10); Urine Color Amber (Yellow); Urine Specific Gravity 1.012 (1.001-1.035); Urine Urobilinogen < 2.0 EU/DL (0.2-1.0); WBC,Urine 35 /HPF (0-6)
[2019-07-05 19:16] LABS: Alanine Aminotransferase 29 U/L (13-56); Albumin 3.1 G/DL (3.4-5.0); Alkaline Phosphatase 102 U/L (45-117); Aspartate Amino Transferase 15 U/L (0-37); Blood Urea Nitrogen 6 MG/DL (7-18); Calcium 8.1 MG/DL (8.5-10.1); Estimated Glom Filtration Rate 106 ML/MIN; Glucose 132 MG/DL (74-106); Osmolality,Calculated 278.4 MOS/KG (273-304); Total Protein 5.8 G/DL (6.4-8.3)
[2019-07-05] MEDS ORDERED: SODIUM CHLORIDE 0.9% 650 ML IV STA (19:16)
[2019-07-05] MEDS ORDERED: cefTRIAXone 1,000 MG in SODIUM CHLORIDE 0.9% 100 ML IV STA (19:16)
[2019-07-05] MEDS ORDERED: MAGNESIUM SULF RIDER 1 GM in PREMIX 1 EACH IV STA (19:42)
[2019-07-05] MEDS ORDERED: HYDROmorphone 2 MG/1 ML VIAL IV STA (19:48)
[2019-07-05] MEDS ORDERED: ONDANSETRON 4 MG/2 ML VIAL IV PRN (19:51)
[2019-07-05] MEDS ORDERED: ACETAMINOPHEN 325 MG TABLET PO PRN (19:51)
[2019-07-05] MEDS ORDERED: PNEUMOCOCCAL VACCINE (13 VALENT) 0.5 ML SYRINGE IM ONE (22:46)
[2019-07-05] MEDS: DEXTROSE 5% NACL 0.9% 1,000 ML IV SCH (22:50)
[2019-07-05] MEDS: DOCUSATE SODIUM 100 MG CAPSULE PO SCH (22:53)
[2019-07-05] MEDS ORDERED: LORazepam 2 MG/1 ML VIAL IV PRN (23:15)
[2019-07-05] MEDS: HYDROmorphone 2 MG/1 ML VIAL IV PRN (23:37)
[2019-07-06] MEDS: hydrALAZINE 20 MG/1 ML VIAL IV PRN (02:36)
[2019-07-06] MEDS ORDERED: hydrALAZINE 20 MG/1 ML VIAL IV ONE (04:46)
[2019-07-06] MEDS: HYDROmorphone 2 MG/1 ML VIAL IV PRN ×2 (05:12→09:05)
[2019-07-06 06:22] LABS: Basophils % 0.2 % (0.0-0.8); Eosinophils # 0.1 10*3/uL (0.0-0.87); Eosinophils % 0.6 % (0.00-10.9); Hematocrit 35.6 VOL% (35.7-47.0); Hemoglobin 11.5 GM/DL (12.0-16.0); Immature Granulocytes % 0.5 %; Immature Granulocytes Absolute 0.08 #; Lymphocytes # 2.3 10*3/uL (1.4-4.0); Lymphocytes % 13.7 % (21.3-54.2); Mean Corpuscular HGB Conc 32.3 GM/DL (32-36); Mean Corpuscular Volume 82.6 FL (87-102); Mean Platelet Volume 10.2 FL (9.6-12.0); Monocytes % 12.9 % (1.7-12.7); Neutrophils % 72.1 % (38.7-73.9); Platelet Count 464 T/CUMM (130-400); Red Blood Count 4.31 MC/CUMM (3.8-5.5); Red Cell Distribution Width 20.2 % (9.3-17.3)
[2019-07-06 06:53] LABS: Albumin 3.6 G/DL (3.4-5.0); Bilirubin,Total 0.5 MG/DL (0.2-1.0); Calcium 9.1 MG/DL (8.5-10.1); Osmolality,Calculated 274.7 MOS/KG (273-304)
[2019-07-06] MEDS: DEXTROSE 5% NACL 0.9% 1,000 ML IV SCH ×2 (07:00→17:04)
[2019-07-06] MEDS: cefTRIAXone 1,000 MG in SYRINGE 1 EACH IV SCH ×2 (08:39→20:32)
[2019-07-06] MEDS: DOCUSATE SODIUM 100 MG CAPSULE PO SCH ×2 (08:54→20:31)
[2019-07-06] MEDS: POTASSIUM CHLORIDE 20 MEQ TABLET PO PRN (08:54)
[2019-07-06] MEDS: PANTOPRAZOLE 40 MG VIAL IV SCH (09:12)
[2019-07-06 12:06] LABS: Cancer Antigen 19-9 17.2 U/ML (0-37); Carcinoembryonic Antigen 1.2 NG/ML (0.0-5.0)
[2019-07-06] MEDS: fentaNYL 75 MCG/HR PATCH TRANSDERM SCH (13:23)
[2019-07-06] MEDS: oxyCODONE IR 5 MG TABLET PO PRN (17:00)
[2019-07-07] MEDS: oxyCODONE IR 5 MG TABLET PO PRN ×2 (00:49→09:37)
[2019-07-07] MEDS: hydrALAZINE 20 MG/1 ML VIAL IV PRN ×3 (00:51→16:37)
[2019-07-07] MEDS: DEXTROSE 5% NACL 0.9% 1,000 ML IV SCH ×2 (00:56→09:00)
[2019-07-07] MEDS: HYDROmorphone 2 MG/1 ML VIAL IV PRN ×2 (07:48→12:11)
[2019-07-07] MEDS: cefTRIAXone 1,000 MG in SYRINGE 1 EACH IV SCH ×2 (07:53→21:03)
[2019-07-07] MEDS: DOCUSATE SODIUM 100 MG CAPSULE PO SCH ×2 (09:36→21:02)
[2019-07-07] MEDS: PANTOPRAZOLE 40 MG VIAL IV SCH (09:39)
[2019-07-07] MEDS ORDERED: LOPERAMIDE 2 MG CAPSULE PO PRN ×2 (12:48)
[2019-07-07] MEDS ORDERED: MYLANTA/LIDO VISC 2:1 300 ML BOTTLE SWISH/SWAL PRN (12:48)
[2019-07-07] MEDS ORDERED: PROMETHAZINE INJ 25 MG in SODIUM CHLORIDE 0.9% 50 ML IV PRN (12:48)
[2019-07-07] MEDS ORDERED: guaiFENesin 200 MG/10 ML UDCUP PO PRN (12:48)
[2019-07-07] MEDS ORDERED: chlorproMAZINE INJ 25 MG in SODIUM CHLORIDE 0.9% 100 ML IV PRN (12:48)
[2019-07-07] MEDS ORDERED: MYLANTA/LIDO VISC 2:1 300 ML BOTTLE SWISH/SPIT PRN (12:48)
[2019-07-07] MEDS ORDERED: diphenhydrAMINE CAP 25 MG CAPSULE PO PRN (12:48)
[2019-07-07] MEDS ORDERED: ALUMINUM/MAGNES/SIMETH MAX STR 30 ML UDCUP PO PRN (12:48)
[2019-07-07] MEDS ORDERED: LACTULOSE 20 GM/30 ML UDCUP PO PRN (12:48)
[2019-07-07] MEDS ORDERED: traMADol 50 MG TABLET PO PRN (12:48)
[2019-07-07] MEDS ORDERED: MAGNESIUM HYDROXIDE SUSP 30 ML UDCUP PO PRN (12:48)
[2019-07-07] MEDS ORDERED: ONDANSETRON 4 MG/2 ML VIAL IV PRN (12:48)
[2019-07-07] MEDS: POTASSIUM CHLORIDE 20 MEQ TABLET PO PRN ×3 (13:08→21:02)
[2019-07-07] MEDS: DEXT 5% NACL 0.45% KCL 40 MEQ 40 MEQ/1,000 ML BAG IV SCH ×2 (13:15→23:28)
[2019-07-07 13:21] LABS: Carcinoembryonic Antigen 13.9 NG/ML (0.0-5.0)
[2019-07-07] MEDS: oxyCODONE/ACETAMINOPHEN 5-325 MG TABLET PO PRN ×2 (15:07→20:46)
[2019-07-07 15:25] LABS: Cancer Antigen 19-9 28249.4 U/ML (0-37)
[2019-07-07] MEDS: HYDROmorphone 2 MG TABLET PO PRN (16:34)
[2019-07-08] MEDS: HYDROmorphone 2 MG TABLET PO PRN ×3 (00:10→10:56)
[2019-07-08] MEDS: TEMAZEPAM 7.5 MG CAPSULE PO PRN ×4 (01:36→21:45)
[2019-07-08] MEDS: oxyCODONE/ACETAMINOPHEN 5-325 MG TABLET PO PRN ×3 (03:02→19:27)
[2019-07-08] MEDS: hydrALAZINE 20 MG/1 ML VIAL IV PRN ×2 (04:34→09:02)
[2019-07-08 05:59] LABS: Basophils # 0.1 10*3/uL (0.0-0.2); Basophils % 0.5 % (0.0-0.8); Eosinophils # 0.3 10*3/uL (0.0-0.87); Eosinophils % 2.9 % (0.00-10.9); Hematocrit 35.7 VOL% (35.7-47.0); Hemoglobin 11.4 GM/DL (12.0-16.0); Immature Granulocytes % 0.4 %; Immature Granulocytes Absolute 0.04 #; Lymphocytes # 2.4 10*3/uL (1.4-4.0); Lymphocytes % 21.8 % (21.3-54.2); Mean Corpuscular HGB Conc 31.9 GM/DL (32-36); Mean Corpuscular Volume 83.4 FL (87-102); Mean Platelet Volume 10.6 FL (9.6-12.0); Monocytes % 13.6 % (1.7-12.7); Neutrophils % 60.8 % (38.7-73.9); Platelet Count 485 T/CUMM (130-400); Red Blood Count 4.28 MC/CUMM (3.8-5.5); Red Cell Distribution Width 20.7 % (9.3-17.3); White Blood Count 11.1 T/CUMM (4-12)
[2019-07-08 06:16] LABS: Albumin 3.1 G/DL (3.4-5.0); Bilirubin,Total 0.4 MG/DL (0.2-1.0); Calcium 8.8 MG/DL (8.5-10.1); Osmolality,Calculated 275.5 MOS/KG (273-304); Total Protein 6.6 G/DL (6.4-8.3)
[2019-07-08] MEDS: HYDROmorphone 2 MG/1 ML VIAL IV PRN ×2 (09:02→12:38)
[2019-07-08] MEDS: cefTRIAXone 1,000 MG in SYRINGE 1 EACH IV SCH ×2 (09:03→20:37)
[2019-07-08] MEDS: DOCUSATE SODIUM 100 MG CAPSULE PO SCH ×2 (09:03→20:39)
[2019-07-08] MEDS: PANTOPRAZOLE 40 MG VIAL IV SCH (10:58)
[2019-07-08] MEDS: DEXT 5% NACL 0.45% KCL 40 MEQ 40 MEQ/1,000 ML BAG IV SCH ×2 (10:58→20:49)
[2019-07-08] MEDS ORDERED: LIPASE PROTEASE AMYLASE PO SCH (15:00)
[2019-07-08] MEDS: ONDANSETRON 4 MG TABLET PO SCH ×2 (15:23→20:40)
[2019-07-08] MEDS: KETOROLAC 30 MG/1 ML VIAL IV PRN ×2 (15:23→20:47)
[2019-07-08] MEDS: DRONABINOL 2.5 MG CAPSULE PO SCH (17:48)
[2019-07-08] MEDS: ENOXAPARIN 40 MG/0.4 ML SYRINGE SUBCUT SCH (17:48)
[2019-07-08 18:30] LABS: Cancer Antigen 19-9 28166.4 U/ML (0-37); Carcinoembryonic Antigen 14.9 NG/ML (0.0-5.0)
[2019-07-08] MEDS: PREGABALIN 75 MG CAPSULE PO SCH (20:41)
[2019-07-08] MEDS: POTASSIUM CHLORIDE 20 MEQ TABLET PO PRN (20:42)
[2019-07-08] MEDS: POTASSIUM CHLORIDE 20 MEQ PACK PO SCH (21:01)
[2019-07-08] MEDS: DULoxetine 30 MG CAPSULE PO SCH (22:18)
[2019-07-09 04:50] LABS: Basophils # 0.1 10*3/uL (0.0-0.2); Basophils % 0.7 % (0.0-0.8); Eosinophils # 0.6 10*3/uL (0.0-0.87); Eosinophils % 5.5 % (0.00-10.9); Hemoglobin 9.9 GM/DL (12.0-16.0); Immature Granulocytes % 0.4 %; Immature Granulocytes Absolute 0.04 #; Lymphocytes % 20.1 % (21.3-54.2); Mean Corpuscular HGB Conc 30.9 GM/DL (32-36); Mean Corpuscular Volume 86.5 FL (87-102); Mean Platelet Volume 10.1 FL (9.6-12.0); Monocytes % 10.2 % (1.7-12.7); Neutrophils % 63.1 % (38.7-73.9); Platelet Count 498 T/CUMM (130-400); Red Cell Distribution Width 20.9 % (9.3-17.3); White Blood Count 10.1 T/CUMM (4-12)
[2019-07-09 05:06] LABS: Albumin 2.6 G/DL (3.4-5.0); Bilirubin,Total 0.8 MG/DL (0.2-1.0); Calcium 8.6 MG/DL (8.5-10.1); Osmolality,Calculated 272.7 MOS/KG (273-304); Total Protein 5.6 G/DL (6.4-8.3)
[2019-07-09] MEDS: oxyCODONE/ACETAMINOPHEN 5-325 MG TABLET PO PRN ×4 (05:43→19:16)
[2019-07-09] MEDS: ONDANSETRON 4 MG TABLET PO SCH ×3 (05:43→21:03)
[2019-07-09] MEDS: DEXT 5% NACL 0.45% KCL 40 MEQ 40 MEQ/1,000 ML BAG IV SCH (06:21)
[2019-07-09 07:58] LABS: Basophils # 0.1 10*3/uL (0.0-0.2); Basophils % 0.7 % (0.0-0.8); Eosinophils # 0.5 10*3/uL (0.0-0.87); Eosinophils % 4.3 % (0.00-10.9); Hematocrit 32.3 VOL% (35.7-47.0); Hemoglobin 10.1 GM/DL (12.0-16.0); Immature Granulocytes % 0.5 %; Immature Granulocytes Absolute 0.06 #; Lymphocytes # 1.4 10*3/uL (1.4-4.0); Lymphocytes % 11.1 % (21.3-54.2); Mean Corpuscular HGB Conc 31.3 GM/DL (32-36); Mean Corpuscular Volume 85.4 FL (87-102); Mean Platelet Volume 9.5 FL (9.6-12.0); Monocytes % 7.8 % (1.7-12.7); Neutrophils % 75.6 % (38.7-73.9); Platelet Count 498 T/CUMM (130-400); Red Blood Count 3.78 MC/CUMM (3.8-5.5); Red Cell Distribution Width 20.9 % (9.3-17.3); White Blood Count 12.3 T/CUMM (4-12)
[2019-07-09 08:27] LABS: Albumin 2.6 G/DL (3.4-5.0); Bilirubin,Total 0.4 MG/DL (0.2-1.0); Calcium 8.3 MG/DL (8.5-10.1); Osmolality,Calculated 278.3 MOS/KG (273-304); Total Protein 5.5 G/DL (6.4-8.3)
[2019-07-09] MEDS: fentaNYL 75 MCG/HR PATCH TRANSDERM SCH (08:56)
[2019-07-09] MEDS: ASPIRIN EC 81 MG TABLET PO SCH (08:56)
[2019-07-09] MEDS: DRONABINOL 2.5 MG CAPSULE PO SCH ×3 (08:56→16:23)
[2019-07-09] MEDS: MAGNESIUM OXIDE 400 MG TABLET PO SCH (08:56)
[2019-07-09] MEDS: PREGABALIN 75 MG CAPSULE PO SCH ×2 (08:56→21:04)
[2019-07-09] MEDS: KETOROLAC 30 MG/1 ML VIAL IV PRN ×3 (08:59→23:13)
[2019-07-09] MEDS: PANTOPRAZOLE 40 MG VIAL IV SCH (09:01)
[2019-07-09] MEDS: cefTRIAXone 1,000 MG in SYRINGE 1 EACH IV SCH ×2 (09:03→21:00)
[2019-07-09] MEDS: DOCUSATE SODIUM 100 MG CAPSULE PO SCH ×2 (09:06→21:03)
[2019-07-09] MEDS: POTASSIUM CHLORIDE 20 MEQ PACK PO SCH ×2 (09:09→21:04)
[2019-07-09] MEDS: HYDROmorphone 2 MG TABLET PO PRN (11:02)
[2019-07-09] MEDS: HYDROmorphone 2 MG/1 ML VIAL IV PRN ×2 (12:15→21:50)
[2019-07-09] MEDS: SIMETHICONE CHEW 125 MG TABLET PO PRN ×2 (12:30→21:03)
[2019-07-09] MEDS: DEXT 5% NACL 0.45% KCL 20 MEQ 20 MEQ/1,000 ML BAG IV SCH (15:06)
[2019-07-09] MEDS: ENOXAPARIN 40 MG/0.4 ML SYRINGE SUBCUT SCH (15:06)
[2019-07-09] MEDS: TEMAZEPAM 7.5 MG CAPSULE PO PRN (21:03)
[2019-07-09] MEDS: DULoxetine 30 MG CAPSULE PO SCH (21:04)
[2019-07-10] MEDS: ALPRAZolam 0.25 MG TABLET PO PRN ×2 (05:10→23:54)
[2019-07-10] MEDS: ONDANSETRON 4 MG TABLET PO SCH ×3 (05:10→20:36)
[2019-07-10 05:36] LABS: Basophils # 0.1 10*3/uL (0.0-0.2); Basophils % 0.6 % (0.0-0.8); Eosinophils # 0.8 10*3/uL (0.0-0.87); Eosinophils % 7.3 % (0.00-10.9); Hematocrit 29.9 VOL% (35.7-47.0); Hemoglobin 9.4 GM/DL (12.0-16.0); Immature Granulocytes Absolute 0.11 #; Lymphocytes # 2.7 10*3/uL (1.4-4.0); Lymphocytes % 25.4 % (21.3-54.2); Mean Corpuscular HGB Conc 31.4 GM/DL (32-36); Mean Corpuscular Volume 86.2 FL (87-102); Monocytes % 10.3 % (1.7-12.7); Neutrophils % 55.4 % (38.7-73.9); Platelet Count 593 T/CUMM (130-400); Red Blood Count 3.47 MC/CUMM (3.8-5.5); Red Cell Distribution Width 20.8 % (9.3-17.3); White Blood Count 10.7 T/CUMM (4-12)
[2019-07-10 06:04] LABS: Alanine Aminotransferase 15 U/L (13-56); Albumin 2.6 G/DL (3.4-5.0); Alkaline Phosphatase 83 U/L (45-117); Aspartate Amino Transferase 12 U/L (0-37); Bilirubin,Total < 0.39 MG/DL (0.2-1.0); Blood Urea Nitrogen 6 MG/DL (7-18); Calcium 8.3 MG/DL (8.5-10.1); Estimated Glom Filtration Rate 94 ML/MIN; Glucose 95 MG/DL (74-106); Osmolality,Calculated 267.1 MOS/KG (273-304); Total Protein 5.3 G/DL (6.4-8.3)
[2019-07-10] MEDS: DEXT 5% NACL 0.45% KCL 20 MEQ 20 MEQ/1,000 ML BAG IV SCH ×3 (07:56→17:22)
[2019-07-10] MEDS: MAGNESIUM OXIDE 400 MG TABLET PO SCH (08:53)
[2019-07-10] MEDS: PREGABALIN 75 MG CAPSULE PO SCH ×2 (08:53→20:36)
[2019-07-10] MEDS: DRONABINOL 2.5 MG CAPSULE PO SCH ×3 (08:53→17:20)
[2019-07-10] MEDS: oxyCODONE/ACETAMINOPHEN 5-325 MG TABLET PO PRN ×2 (08:53→14:29)
[2019-07-10] MEDS: DOCUSATE SODIUM 100 MG CAPSULE PO SCH ×2 (08:53→20:36)
[2019-07-10] MEDS: ASPIRIN EC 81 MG TABLET PO SCH (08:53)
[2019-07-10] MEDS: cefTRIAXone 1,000 MG in SYRINGE 1 EACH IV SCH ×2 (08:54→20:36)
[2019-07-10] MEDS: POTASSIUM CHLORIDE 20 MEQ PACK PO SCH ×2 (08:54→20:42)
[2019-07-10] MEDS: PANTOPRAZOLE 40 MG VIAL IV SCH (08:57)
[2019-07-10] MEDS: ENOXAPARIN 40 MG/0.4 ML SYRINGE SUBCUT SCH (14:29)
[2019-07-10] MEDS: KETOROLAC 30 MG/1 ML VIAL IV PRN (17:24)
[2019-07-10] MEDS: DULoxetine 30 MG CAPSULE PO SCH (20:36)
[2019-07-10] MEDS: HYDROmorphone 2 MG TABLET PO PRN (21:22)
[2019-07-10] MEDS: TEMAZEPAM 7.5 MG CAPSULE PO PRN (22:23)
[2019-07-11] MEDS: DEXT 5% NACL 0.45% KCL 20 MEQ 20 MEQ/1,000 ML BAG IV SCH ×4 (01:20→20:56)
[2019-07-11] MEDS: oxyCODONE/ACETAMINOPHEN 5-325 MG TABLET PO PRN ×4 (02:51→17:10)
[2019-07-11] MEDS: KETOROLAC 30 MG/1 ML VIAL IV PRN ×2 (03:50→17:20)
[2019-07-11 04:58] LABS: Basophils % 0.3 % (0.0-0.8); Eosinophils # 0.8 10*3/uL (0.0-0.87); Eosinophils % 6.2 % (0.00-10.9); Hematocrit 32.4 VOL% (35.7-47.0); Hemoglobin 10.2 GM/DL (12.0-16.0); Immature Granulocytes % 0.4 %; Immature Granulocytes Absolute 0.05 #; Lymphocytes % 16.8 % (21.3-54.2); Mean Corpuscular HGB Conc 31.5 GM/DL (32-36); Mean Corpuscular Volume 85.5 FL (87-102); Mean Platelet Volume 10.1 FL (9.6-12.0); Neutrophils % 66.3 % (38.7-73.9); Red Blood Count 3.79 MC/CUMM (3.8-5.5); Red Cell Distribution Width 20.5 % (9.3-17.3); White Blood Count 12.2 T/CUMM (4-12)
[2019-07-11 05:09] LABS: Platelet Count 750 T/CUMM (130-400)
[2019-07-11 05:35] LABS: Albumin 2.8 G/DL (3.4-5.0); Bilirubin,Total 1.1 MG/DL (0.2-1.0); Calcium 8.3 MG/DL (8.5-10.1); Osmolality,Calculated 273.7 MOS/KG (273-304); Total Protein 5.9 G/DL (6.4-8.3)
[2019-07-11] MEDS: ONDANSETRON 4 MG TABLET PO SCH ×3 (06:23→20:57)
[2019-07-11] MEDS: cefTRIAXone 1,000 MG in SYRINGE 1 EACH IV SCH ×2 (08:47→20:56)
[2019-07-11] MEDS: PANTOPRAZOLE 40 MG VIAL IV SCH (08:56)
[2019-07-11] MEDS: MAGNESIUM OXIDE 400 MG TABLET PO SCH ×2 (09:40→15:15)
[2019-07-11] MEDS: DOCUSATE SODIUM 100 MG CAPSULE PO SCH ×3 (09:40→20:57)
[2019-07-11] MEDS: ASPIRIN EC 81 MG TABLET PO SCH ×2 (09:40→15:15)
[2019-07-11] MEDS: DRONABINOL 2.5 MG CAPSULE PO SCH ×3 (09:40→17:10)
[2019-07-11] MEDS: PREGABALIN 75 MG CAPSULE PO SCH ×3 (09:40→20:57)
[2019-07-11] MEDS: POTASSIUM CHLORIDE 20 MEQ PACK PO SCH ×2 (09:47→21:08)
[2019-07-11] MEDS: HYDROmorphone 2 MG/1 ML VIAL IV PRN ×2 (18:28→23:18)
[2019-07-11] MEDS: ENOXAPARIN 40 MG/0.4 ML SYRINGE SUBCUT SCH (18:30)
[2019-07-11] MEDS: TEMAZEPAM 7.5 MG CAPSULE PO PRN (20:57)
[2019-07-11] MEDS: DULoxetine 30 MG CAPSULE PO SCH (20:57)
[2019-07-11] MEDS: ALPRAZolam 0.25 MG TABLET PO PRN (21:01)
[2019-07-12] MEDS: ALPRAZolam 0.25 MG TABLET PO PRN (01:17)
[2019-07-12] MEDS: oxyCODONE/ACETAMINOPHEN 5-325 MG TABLET PO PRN ×2 (01:20→12:15)
[2019-07-12] MEDS: DEXT 5% NACL 0.45% KCL 20 MEQ 20 MEQ/1,000 ML BAG IV SCH ×2 (01:30→04:39)
[2019-07-12] MEDS: KETOROLAC 30 MG/1 ML VIAL IV PRN (03:44)
[2019-07-12] MEDS: ONDANSETRON 4 MG TABLET PO SCH (04:39)
[2019-07-12 05:09] LABS: Basophils # 0.1 10*3/uL (0.0-0.2); Basophils % 0.4 % (0.0-0.8); Eosinophils # 0.6 10*3/uL (0.0-0.87); Eosinophils % 4.8 % (0.00-10.9); Hematocrit 30.7 VOL% (35.7-47.0); Hemoglobin 9.5 GM/DL (12.0-16.0); Immature Granulocytes % 0.5 %; Immature Granulocytes Absolute 0.06 #; Lymphocytes % 17.8 % (21.3-54.2); Mean Corpuscular HGB Conc 30.9 GM/DL (32-36); Mean Corpuscular Volume 85.8 FL (87-102); Mean Platelet Volume 9.6 FL (9.6-12.0); Monocytes % 11.1 % (1.7-12.7); Neutrophils % 65.4 % (38.7-73.9); Platelet Count 765 T/CUMM (130-400); Red Blood Count 3.58 MC/CUMM (3.8-5.5); Red Cell Distribution Width 20.5 % (9.3-17.3); White Blood Count 11.5 T/CUMM (4-12)
[2019-07-12 05:17] LABS: Albumin 2.6 G/DL (3.4-5.0); Bilirubin,Total 0.4 MG/DL (0.2-1.0); Calcium 8.1 MG/DL (8.5-10.1); Osmolality,Calculated 271.8 MOS/KG (273-304); Total Protein 5.5 G/DL (6.4-8.3)
[2019-07-12] MEDS: ASPIRIN EC 81 MG TABLET PO SCH (08:38)
[2019-07-12] MEDS: POTASSIUM CHLORIDE 20 MEQ PACK PO SCH (08:38)
[2019-07-12] MEDS: MAGNESIUM OXIDE 400 MG TABLET PO SCH (08:38)
[2019-07-12] MEDS: PREGABALIN 75 MG CAPSULE PO SCH (08:38)
[2019-07-12] MEDS: DRONABINOL 2.5 MG CAPSULE PO SCH ×2 (08:38→12:15)
[2019-07-12] MEDS: cefTRIAXone 1,000 MG in SYRINGE 1 EACH IV SCH (08:39)
[2019-07-12] MEDS: fentaNYL 75 MCG/HR PATCH TRANSDERM SCH (08:40)
[2019-07-12] MEDS: DOCUSATE SODIUM 100 MG CAPSULE PO SCH (08:40)
[2019-07-12] MEDS: PANTOPRAZOLE 40 MG VIAL IV SCH (08:41)
[2019-07-12 13:17] VITALS: BP 94/51
[2019-07-12] MEDS ORDERED: HEPARIN LOCK FLUSH 500 UNIT/5 ML SYRINGE IV ONE (13:28)
== END 2019-07-12 14:24 | disposition home health service (06) | DRG 917 ==
LOC: EDBD → EDUNIT# → N.ED 17:35 → N.EDINP 17:35 → N.4E 22:08
PROVIDERS: ADMIT Family Medicine; ATTEND Family Medicine

== ENCOUNTER 2019-07-28 13:52 | Inpatient (IN) ==
[2019-07-28] MEDS ORDERED: LACTATED RINGERS 500 ML IV ONE ×2 (16:40→19:37)
[2019-07-28] MEDS ORDERED: ONDANSETRON 4 MG/2 ML VIAL IV ONE (16:41)
[2019-07-28 18:35] LABS: Basophils % 0.2 % (0.0-0.8); Eosinophils # 0.1 10*3/uL (0.0-0.87); Eosinophils % 0.3 % (0.00-10.9); Hematocrit 29.1 VOL% (35.7-47.0); Hemoglobin 9.9 GM/DL (12.0-16.0); Immature Granulocytes % 24.8 %; Immature Granulocytes Absolute 4.61 #; Lymphocytes # 3.5 10*3/uL (1.4-4.0); Lymphocytes % 18.6 % (21.3-54.2); Mean Corpuscular Volume 81.1 FL (87-102); Monocytes % 8.1 % (1.7-12.7); NRBC # 4.12 10*3/uL; Platelet Count 392 T/CUMM (130-400); Red Blood Count 3.59 MC/CUMM (3.8-5.5); Red Cell Distribution Width 18.7 % (9.3-17.3); White Blood Count 18.6 T/CUMM (4-12)
[2019-07-28 18:55] LABS: Albumin 2.2 G/DL (3.4-5.0); Bilirubin,Total 0.7 MG/DL (0.2-1.0); Calcium 8.5 MG/DL (8.5-10.1); Osmolality,Calculated 269.9 MOS/KG (273-304); Total Protein 6.2 G/DL (6.4-8.3)
[2019-07-28 19:05] LABS: Band Neutrophils 3 % (0-10); Eosinophils 1 % (0-10); Lymphocytes 25 % (20-55); Metamyelocytes 2 %; Myelocytes 2 %; Nucleated Red Blood Cells 33 (0-5); Promyelocytes 1 %; Segmented Neutrophils 53 % (50-85); Total Cells Counted 100
[2019-07-28 19:06] LABS: Anisocytosis 1+; Hypochromasia 1+
[2019-07-28 19:07] LABS: Howell-Jolly Bodies 1+; Platelet Estimate Adequate; Polychromasia 1+; Target Cells 1+
[2019-07-28 19:08] LABS: Schistocytes Few
[2019-07-28 19:52] LABS: Apearance,Urine Slightly Hazy (Clear); Bilirubin,Urine Small mg/dL (Negative); Blood, Urine Negative (Negative); Glucose,Urine (UA) Negative (Negative); Hyaline Casts,Urine 1 /LPF (0-3); Ketones,Urine 20 mg/dL (Negative); Mucus,Urine Occasional /LPF (Occasional); Nitrite,Urine Negative (Negative); Protein,Urine 30 MG/DL; RBC,Urine <1 /HPF (0-4); Squamous Epithelial Cell,Urine Occasional /HPF (0-10); Urine Color Yellow (Yellow); Urine Specific Gravity 1.023 (1.001-1.035); Urine Urobilinogen < 2.0 EU/DL (0.2-1.0); WBC,Urine 2 /HPF (0-6)
[2019-07-28] MEDS ORDERED: SODIUM CHLORIDE 0.9% 1,000 ML IV STA (20:33)
[2019-07-28] MEDS ORDERED: cefTRIAXone 1,000 MG in SODIUM CHLORIDE 0.9% 100 ML IV STA (20:33)
[2019-07-28] MEDS ORDERED: fentaNYL 100 MCG/2 ML VIAL IV STA (21:12)
[2019-07-28] MEDS ORDERED: ONDANSETRON 4 MG/2 ML VIAL IV STA (21:20)
[2019-07-28] MEDS: SODIUM CHLORIDE 0.9% 1,000 ML IV SCH (23:42)
[2019-07-29] MEDS: ZALEPLON 5 MG CAPSULE PO PRN ×2 (02:14→20:56)
[2019-07-29] MEDS ORDERED: fentaNYL 75 MCG/HR PATCH TRANSDERM SCH (05:00)
[2019-07-29 05:52] LABS: Basophils % 0.2 % (0.0-0.8); Eosinophils % 0.3 % (0.00-10.9); Hematocrit 24.5 VOL% (35.7-47.0); Hemoglobin 8.4 GM/DL (12.0-16.0); Immature Granulocytes % 23.8 %; Immature Granulocytes Absolute 3.68 #; Lymphocytes # 2.7 10*3/uL (1.4-4.0); Lymphocytes % 17.5 % (21.3-54.2); Mean Corpuscular HGB Conc 34.3 GM/DL (32-36); Mean Corpuscular Volume 80.1 FL (87-102); Monocytes % 9.1 % (1.7-12.7); NRBC # 3.09 10*3/uL; Neutrophils % 49.1 % (38.7-73.9); Platelet Count 371 T/CUMM (130-400); Red Blood Count 3.06 MC/CUMM (3.8-5.5); Red Cell Distribution Width 18.6 % (9.3-17.3); White Blood Count 15.5 T/CUMM (4-12)
[2019-07-29 06:12] LABS: Calcium 7.6 MG/DL (8.5-10.1); Osmolality,Calculated 278.7 MOS/KG (273-304)
[2019-07-29 06:39] LABS: Eosinophils 1 % (0-10); Hypochromasia 1+; Lymphocytes 23 % (20-55); Metamyelocytes 1 %; Microcytosis 1+; Nucleated Red Blood Cells 38 (0-5); Platelet Estimate Normal; Polychromasia Few; Segmented Neutrophils 59 % (50-85); Target Cells Few; Total Cells Counted 100
[2019-07-29] MEDS: fentaNYL 100 MCG/HR PATCH TRANSDERM SCH (10:12)
[2019-07-29] MEDS: oxyCODONE/ACETAMINOPHEN 5-325 MG TABLET PO PRN (10:12)
[2019-07-29] MEDS: SODIUM CHLORIDE 0.9% 1,000 ML IV SCH (10:12)
[2019-07-29] MEDS: DEXT 5% NACL 0.45% KCL 20 MEQ 20 MEQ/1,000 ML BAG IV SCH ×2 (10:19→17:44)
[2019-07-29] MEDS: ONDANSETRON 4 MG/2 ML VIAL IV PRN ×2 (10:23→17:45)
[2019-07-29] MEDS: HYDROmorphone 2 MG/1 ML VIAL IV PRN ×3 (12:05→21:03)
[2019-07-29] MEDS: ENOXAPARIN 40 MG/0.4 ML SYRINGE SUBCUT SCH (20:54)
[2019-07-29] MEDS: PROMETHAZINE INJ 12.5 MG in SODIUM CHLORIDE 0.9% 50 ML IV PRN (20:59)
[2019-07-30] MEDS: ONDANSETRON 4 MG/2 ML VIAL IV PRN ×3 (00:22→13:12)
[2019-07-30] MEDS: HYDROmorphone 2 MG/1 ML VIAL IV PRN ×7 (00:22→18:44)
[2019-07-30] MEDS: DEXT 5% NACL 0.45% KCL 20 MEQ 20 MEQ/1,000 ML BAG IV SCH (04:04)
[2019-07-30 08:15] LABS: Albumin 1.8 G/DL (3.4-5.0); Bilirubin,Total 0.4 MG/DL (0.2-1.0); Calcium 7.7 MG/DL (8.5-10.1); Osmolality,Calculated 266.2 MOS/KG (273-304); Total Protein 5.3 G/DL (6.4-8.3)
[2019-07-30 08:21] LABS: Basophils # 0.1 10*3/uL (0.0-0.2); Basophils % 0.9 % (0.0-0.8); Eosinophils # 0.1 10*3/uL (0.0-0.87); Eosinophils % 0.7 % (0.00-10.9); Hematocrit 26.6 VOL% (35.7-47.0); Immature Granulocytes Absolute 2.73 #; Lymphocytes # 2.3 10*3/uL (1.4-4.0); Lymphocytes % 17.5 % (21.3-54.2); Mean Corpuscular HGB Conc 33.8 GM/DL (32-36); Mean Corpuscular Volume 81.8 FL (87-102); Mean Platelet Volume 11.7 FL (9.6-12.0); Monocytes % 9.7 % (1.7-12.7); NRBC # 2.42 10*3/uL; Neutrophils % 50.2 % (38.7-73.9); Platelet Count 414 T/CUMM (130-400); Red Blood Count 3.25 MC/CUMM (3.8-5.5)
[2019-07-30 08:25] LABS: Atypical Lymphocytes Few; Eosinophils 2 % (0-10); Hypochromasia 1+; Lymphocytes 17 % (20-55); Microcytosis Slight; Nucleated Red Blood Cells 36 (0-5); Platelet Estimate Adequate; Segmented Neutrophils 70 % (50-85); Target Cells Few; Total Cells Counted 100
[2019-07-30] MEDS: DEXT 5% NACL 0.9% KCL 40 MEQ 40 MEQ/1,000 ML BAG IV SCH ×2 (09:28→21:01)
[2019-07-30] MEDS: cloNIDine 0.1 MG TABLET PO PRN (13:15)
[2019-07-30] MEDS: PROMETHAZINE INJ 12.5 MG in SODIUM CHLORIDE 0.9% 50 ML IV PRN (19:32)
[2019-07-30] MEDS: oxyCODONE/ACETAMINOPHEN 5-325 MG TABLET PO PRN (20:58)
[2019-07-30] MEDS: ZALEPLON 5 MG CAPSULE PO PRN (20:58)
[2019-07-30] MEDS: ENOXAPARIN 40 MG/0.4 ML SYRINGE SUBCUT SCH (20:59)
[2019-07-31] MEDS: ONDANSETRON 4 MG/2 ML VIAL IV PRN ×5 (00:40→21:01)
[2019-07-31] MEDS: HYDROmorphone 2 MG/1 ML VIAL IV PRN ×8 (00:42→23:05)
[2019-07-31] MEDS: DEXT 5% NACL 0.9% KCL 40 MEQ 40 MEQ/1,000 ML BAG IV SCH (06:06)
[2019-07-31 07:29] LABS: Albumin 2.1 G/DL (3.4-5.0); Bilirubin,Total 1.2 MG/DL (0.2-1.0); Calcium 8.1 MG/DL (8.5-10.1); Osmolality,Calculated 279.1 MOS/KG (273-304); Total Protein 5.9 G/DL (6.4-8.3)
[2019-07-31 07:46] LABS: Band Neutrophils 13 % (0-10); Eosinophils 1 % (0-10); Lymphocytes 25 % (20-55); Metamyelocytes 3 %; Nucleated Red Blood Cells 35 (0-5); Platelet Estimate Increased; Segmented Neutrophils 51 % (50-85); Total Cells Counted 100
[2019-07-31 07:52] LABS: Anisocytosis 3+; Hypochromasia Slight; Macrocytosis Slight; Poikilocytosis Slight; Polychromasia Slight; Target Cells 1+
[2019-07-31 07:53] LABS: Basophils # 0.1 10*3/uL (0.0-0.2); Basophils % 0.8 % (0.0-0.8); Eosinophils # 0.1 10*3/uL (0.0-0.87); Hematocrit 30.1 VOL% (35.7-47.0); Hemoglobin 9.8 GM/DL (12.0-16.0); Immature Granulocytes % 13.8 %; Lymphocytes # 2.3 10*3/uL (1.4-4.0); Lymphocytes % 17.9 % (21.3-54.2); Mean Corpuscular HGB Conc 32.6 GM/DL (32-36); Mean Corpuscular Volume 83.8 FL (87-102); Mean Platelet Volume 11.6 FL (9.6-12.0); Monocytes % 10.7 % (1.7-12.7); NRBC # 1.87 10*3/uL; Neutrophils % 55.8 % (38.7-73.9); Platelet Count 514 T/CUMM (130-400); Red Blood Count 3.59 MC/CUMM (3.8-5.5); Red Cell Distribution Width 19.6 % (9.3-17.3); White Blood Count 13.1 T/CUMM (4-12)
[2019-07-31] MEDS: cloNIDine 0.1 MG TABLET PO PRN (13:46)
[2019-07-31] MEDS: CIPROFLOXACIN INJ 400 MG in PREMIX 1 EACH IV SCH (16:35)
[2019-07-31] MEDS: metroNIDAZOLE INJ 500 MG in PREMIX 1 EACH IV SCH (17:55)
[2019-07-31] MEDS: ENOXAPARIN 40 MG/0.4 ML SYRINGE SUBCUT SCH (21:02)
[2019-07-31] MEDS: ZALEPLON 5 MG CAPSULE PO PRN (23:00)
[2019-08-01] MEDS: metroNIDAZOLE INJ 500 MG in PREMIX 1 EACH IV SCH ×3 (01:05→21:21)
[2019-08-01] MEDS: ONDANSETRON 4 MG/2 ML VIAL IV PRN ×2 (02:09→07:32)
[2019-08-01] MEDS: HYDROmorphone 2 MG/1 ML VIAL IV PRN ×8 (02:11→21:10)
[2019-08-01] MEDS: DEXT 5% NACL 0.9% KCL 40 MEQ 40 MEQ/1,000 ML BAG IV SCH ×2 (02:14→21:07)
[2019-08-01] MEDS: CIPROFLOXACIN INJ 400 MG in PREMIX 1 EACH IV SCH ×2 (04:22→21:08)
[2019-08-01] MEDS: cloNIDine 0.1 MG TABLET PO PRN ×2 (04:24→15:21)
[2019-08-01 05:01] LABS: Basophils # 0.1 10*3/uL (0.0-0.2); Basophils % 0.5 % (0.0-0.8); Eosinophils # 0.1 10*3/uL (0.0-0.87); Eosinophils % 0.9 % (0.00-10.9); Hematocrit 27.7 VOL% (35.7-47.0); Immature Granulocytes % 9.2 %; Immature Granulocytes Absolute 1.36 #; Lymphocytes % 13.1 % (21.3-54.2); Mean Corpuscular HGB Conc 32.5 GM/DL (32-36); Mean Corpuscular Volume 83.7 FL (87-102); Mean Platelet Volume 10.9 FL (9.6-12.0); NRBC # 1.37 10*3/uL; Neutrophils % 66.3 % (38.7-73.9); Platelet Count 508 T/CUMM (130-400); Red Blood Count 3.31 MC/CUMM (3.8-5.5); Red Cell Distribution Width 19.6 % (9.3-17.3); White Blood Count 14.9 T/CUMM (4-12)
[2019-08-01 05:29] LABS: Lymphocytes 17 % (20-55); Nucleated Red Blood Cells 2 (0-5); Segmented Neutrophils 78 % (50-85); Total Cells Counted 100
[2019-08-01 05:30] LABS: Platelet Estimate Increased; Polychromasia Few; Target Cells Few
[2019-08-01 05:45] LABS: Bilirubin,Total 0.5 MG/DL (0.2-1.0); Calcium 7.8 MG/DL (8.5-10.1); Total Protein 5.5 G/DL (6.4-8.3)
[2019-08-01] MEDS: fentaNYL 100 MCG/HR PATCH TRANSDERM SCH (08:22)
[2019-08-01] MEDS: PROMETHAZINE INJ 25 MG in SODIUM CHLORIDE 0.9% 50 ML IV PRN ×2 (09:45→15:11)
[2019-08-01] MEDS ORDERED: DEXAMETHASONE INJ 20 MG in SODIUM CHLORIDE 0.9% 50 ML IV ONE (13:30)
[2019-08-01] MEDS ORDERED: GRANISETRON 1 MG/1 ML VIAL IV ONE (13:30)
[2019-08-01] MEDS ORDERED: ATROPINE 0.4 MG/1 ML VIAL IV ONE (13:30)
[2019-08-01] MEDS ORDERED: diphenhydrAMINE 50 MG/1 ML VIAL IV ONE (13:30)
[2019-08-01] MEDS ORDERED: IRINOTECAN LIPOSOMAL IV ONE (14:00)
[2019-08-01] MEDS ORDERED: SODIUM CHLORIDE 0.9% IV ONE (14:00)
[2019-08-01] MEDS: hydrALAZINE 20 MG/1 ML VIAL IV PRN (17:51)
[2019-08-01] MEDS: oxyCODONE/ACETAMINOPHEN 5-325 MG TABLET PO PRN (18:39)
[2019-08-01] MEDS: PROMETHAZINE 25 MG/1 ML VIAL IM PRN (21:09)
[2019-08-01] MEDS: ENOXAPARIN 40 MG/0.4 ML SYRINGE SUBCUT SCH (21:13)
[2019-08-02] MEDS: ONDANSETRON 4 MG/2 ML VIAL IV PRN ×4 (00:28→21:25)
[2019-08-02] MEDS: HYDROmorphone 2 MG/1 ML VIAL IV PRN ×9 (00:31→23:39)
[2019-08-02] MEDS: metroNIDAZOLE INJ 500 MG in PREMIX 1 EACH IV SCH ×3 (04:03→20:07)
[2019-08-02 07:10] LABS: Basophils % 0.2 % (0.0-0.8); Eosinophils % 0.2 % (0.00-10.9); Hematocrit 25.6 VOL% (35.7-47.0); Hemoglobin 8.5 GM/DL (12.0-16.0); Immature Granulocytes Absolute 0.77 #; Lymphocytes # 2.2 10*3/uL (1.4-4.0); Lymphocytes % 16.9 % (21.3-54.2); Mean Corpuscular HGB Conc 33.2 GM/DL (32-36); Mean Corpuscular Volume 83.4 FL (87-102); Mean Platelet Volume 10.7 FL (9.6-12.0); Monocytes % 15.3 % (1.7-12.7); Neutrophils % 61.4 % (38.7-73.9); Platelet Count 511 T/CUMM (130-400); Red Blood Count 3.07 MC/CUMM (3.8-5.5); Red Cell Distribution Width 19.9 % (9.3-17.3); White Blood Count 12.8 T/CUMM (4-12)
[2019-08-02 07:30] LABS: Albumin 1.8 G/DL (3.4-5.0); Bilirubin,Total 0.4 MG/DL (0.2-1.0); Calcium 7.3 MG/DL (8.5-10.1); Osmolality,Calculated 280.3 MOS/KG (273-304); Total Protein 5.2 G/DL (6.4-8.3)
[2019-08-02 07:36] LABS: Lymphocytes 12 % (20-55); Metamyelocytes 1 %; Nucleated Red Blood Cells 15 (0-5); Segmented Neutrophils 76 % (50-85); Total Cells Counted 100
[2019-08-02 07:37] LABS: Anisocytosis 1+; Hypochromasia 1+; Microcytosis 1+
[2019-08-02 07:38] LABS: Howell-Jolly Bodies Slight; Target Cells Few
[2019-08-02 07:39] LABS: Platelet Estimate Increased
[2019-08-02] MEDS: DEXT 5% NACL 0.9% KCL 40 MEQ 40 MEQ/1,000 ML BAG IV SCH ×4 (09:05→23:54)
[2019-08-02] MEDS: CIPROFLOXACIN INJ 400 MG in PREMIX 1 EACH IV SCH ×2 (09:10→23:42)
[2019-08-02] MEDS: GRANISETRON 1 MG/1 ML VIAL IV SCH ×3 (10:21→21:52)
[2019-08-02] MEDS ORDERED: DEXAMETHASONE INJ 10 MG in SODIUM CHLORIDE 0.9% 50 ML IV ONE (10:30)
[2019-08-02] MEDS: hydrALAZINE 20 MG/1 ML VIAL IV PRN (16:57)
[2019-08-02] MEDS: PROMETHAZINE 25 MG/1 ML VIAL IM PRN (18:57)
[2019-08-02] MEDS: ENOXAPARIN 40 MG/0.4 ML SYRINGE SUBCUT SCH (20:07)
[2019-08-02] MEDS: PROMETHAZINE INJ 25 MG in SODIUM CHLORIDE 0.9% 50 ML IV PRN (22:54)
[2019-08-03] MEDS: GRANISETRON 1 MG/1 ML VIAL IV SCH (03:41)
[2019-08-03] MEDS: metroNIDAZOLE INJ 500 MG in PREMIX 1 EACH IV SCH ×3 (03:49→20:10)
[2019-08-03] MEDS: HYDROmorphone 2 MG/1 ML VIAL IV PRN ×7 (05:04→23:30)
[2019-08-03] MEDS: PROMETHAZINE INJ 25 MG in SODIUM CHLORIDE 0.9% 50 ML IV PRN ×4 (05:05→23:36)
[2019-08-03] MEDS: ALUMINUM/MAGNES/SIMETH MAX STR 30 ML UDCUP PO PRN (09:52)
[2019-08-03] MEDS: CIPROFLOXACIN INJ 400 MG in PREMIX 1 EACH IV SCH ×2 (09:52→21:16)
[2019-08-03] MEDS: ONDANSETRON 4 MG/2 ML VIAL IV PRN ×3 (09:55→21:11)
[2019-08-03] MEDS: DEXT 5% NACL 0.9% KCL 40 MEQ 40 MEQ/1,000 ML BAG IV SCH ×2 (09:58→20:07)
[2019-08-03] MEDS: hydrALAZINE 20 MG/1 ML VIAL IV PRN (10:14)
[2019-08-03] MEDS ORDERED: MAGNESIUM SULF RIDER 2 GM in PREMIX 1 EACH IV PRN (10:26)
[2019-08-03] MEDS ORDERED: MAGNESIUM SULF RIDER 4 GM in PREMIX 1 EACH IV PRN (10:26)
[2019-08-03] MEDS: ENOXAPARIN 40 MG/0.4 ML SYRINGE SUBCUT SCH (20:12)
[2019-08-04] MEDS: hydrALAZINE 20 MG/1 ML VIAL IV PRN ×2 (00:13→09:31)
[2019-08-04] MEDS: HYDROmorphone 2 MG/1 ML VIAL IV PRN ×8 (03:14→21:34)
[2019-08-04] MEDS: metroNIDAZOLE INJ 500 MG in PREMIX 1 EACH IV SCH ×3 (03:16→20:04)
[2019-08-04] MEDS: ONDANSETRON 4 MG/2 ML VIAL IV PRN ×3 (03:35→18:02)
[2019-08-04] MEDS: DEXT 5% NACL 0.9% KCL 40 MEQ 40 MEQ/1,000 ML BAG IV SCH ×2 (04:23→14:03)
[2019-08-04 05:06] LABS: Basophils % 0.4 % (0.0-0.8); Eosinophils # 0.1 10*3/uL (0.0-0.87); Hematocrit 29.2 VOL% (35.7-47.0); Hemoglobin 9.5 GM/DL (12.0-16.0); Immature Granulocytes % 2.2 %; Immature Granulocytes Absolute 0.23 #; Lymphocytes # 1.3 10*3/uL (1.4-4.0); Lymphocytes % 12.3 % (21.3-54.2); Mean Corpuscular HGB Conc 32.5 GM/DL (32-36); Mean Corpuscular Volume 86.1 FL (87-102); Mean Platelet Volume 10.7 FL (9.6-12.0); Monocytes % 9.2 % (1.7-12.7); Neutrophils % 74.9 % (38.7-73.9); Platelet Count 439 T/CUMM (130-400); Red Blood Count 3.39 MC/CUMM (3.8-5.5); Red Cell Distribution Width 21.1 % (9.3-17.3); White Blood Count 10.3 T/CUMM (4-12)
[2019-08-04] MEDS: PROMETHAZINE INJ 25 MG in SODIUM CHLORIDE 0.9% 50 ML IV PRN ×4 (05:36→20:10)
[2019-08-04 05:45] LABS: Albumin 2.1 G/DL (3.4-5.0); Bilirubin,Total 0.6 MG/DL (0.2-1.0); Osmolality,Calculated 271.7 MOS/KG (273-304); Total Protein 5.5 G/DL (6.4-8.3)
[2019-08-04] MEDS: fentaNYL 100 MCG/HR PATCH TRANSDERM SCH (09:10)
[2019-08-04] MEDS: cloNIDine 0.1 MG TABLET PO PRN (09:10)
[2019-08-04] MEDS: CIPROFLOXACIN INJ 400 MG in PREMIX 1 EACH IV SCH ×2 (09:10→21:31)
[2019-08-04] MEDS: oxyCODONE/ACETAMINOPHEN 5-325 MG TABLET PO PRN (21:28)
[2019-08-04] MEDS: ZALEPLON 5 MG CAPSULE PO PRN (21:28)
[2019-08-04] MEDS ORDERED: hydrALAZINE 20 MG/1 ML VIAL IV ONE (23:43)
[2019-08-05] MEDS: ENOXAPARIN 40 MG/0.4 ML SYRINGE SUBCUT SCH ×3 (00:07→22:47)
[2019-08-05] MEDS: DEXT 5% NACL 0.9% KCL 40 MEQ 40 MEQ/1,000 ML BAG IV SCH ×2 (02:42→12:29)
[2019-08-05] MEDS: HYDROmorphone 2 MG/1 ML VIAL IV PRN ×8 (03:42→19:59)
[2019-08-05] MEDS: PROMETHAZINE INJ 25 MG in SODIUM CHLORIDE 0.9% 50 ML IV PRN ×3 (03:42→22:01)
[2019-08-05] MEDS: metroNIDAZOLE INJ 500 MG in PREMIX 1 EACH IV SCH ×3 (04:51→20:05)
[2019-08-05 05:23] LABS: Basophils # 0.1 10*3/uL (0.0-0.2); Basophils % 0.6 % (0.0-0.8); Eosinophils # 0.1 10*3/uL (0.0-0.87); Eosinophils % 1.2 % (0.00-10.9); Hematocrit 28.9 VOL% (35.7-47.0); Hemoglobin 9.6 GM/DL (12.0-16.0); Immature Granulocytes % 1.4 %; Immature Granulocytes Absolute 0.11 #; Lymphocytes # 1.1 10*3/uL (1.4-4.0); Lymphocytes % 13.2 % (21.3-54.2); Mean Corpuscular HGB Conc 33.2 GM/DL (32-36); Mean Platelet Volume 9.8 FL (9.6-12.0); Monocytes % 8.7 % (1.7-12.7); NRBC # 0.34 10*3/uL; Neutrophils % 74.9 % (38.7-73.9); Platelet Count 544 T/CUMM (130-400); Red Cell Distribution Width 20.9 % (9.3-17.3); White Blood Count 8.1 T/CUMM (4-12)
[2019-08-05 05:47] LABS: Albumin 2.1 G/DL (3.4-5.0); Bilirubin,Total 1.5 MG/DL (0.2-1.0); Osmolality,Calculated 280.1 MOS/KG (273-304); Total Protein 5.6 G/DL (6.4-8.3)
[2019-08-05] MEDS: hydrALAZINE 20 MG/1 ML VIAL IV PRN ×2 (08:06→20:02)
[2019-08-05] MEDS: CIPROFLOXACIN INJ 400 MG in PREMIX 1 EACH IV SCH ×2 (08:10→22:46)
[2019-08-05] MEDS ORDERED: ceFAZolin 1,000 MG in SYRINGE 1 EACH IV ONE (10:08)
[2019-08-06] MEDS: HYDROmorphone 2 MG/1 ML VIAL IV PRN ×7 (01:15→23:42)
[2019-08-06] MEDS: DEXT 5% NACL 0.9% KCL 40 MEQ 40 MEQ/1,000 ML BAG IV SCH ×2 (01:18→12:38)
[2019-08-06] MEDS: ONDANSETRON 4 MG/2 ML VIAL IV PRN ×2 (01:23→21:44)
[2019-08-06] MEDS: metroNIDAZOLE INJ 500 MG in PREMIX 1 EACH IV SCH ×3 (04:18→20:47)
[2019-08-06] MEDS: hydrALAZINE 20 MG/1 ML VIAL IV PRN (04:31)
[2019-08-06 05:05] LABS: Basophils # 0.1 10*3/uL (0.0-0.2); Basophils % 0.5 % (0.0-0.8); Eosinophils # 0.1 10*3/uL (0.0-0.87); Eosinophils % 1.5 % (0.00-10.9); Hematocrit 27.6 VOL% (35.7-47.0); Hemoglobin 9.1 GM/DL (12.0-16.0); Immature Granulocytes Absolute 0.09 #; Lymphocytes # 1.2 10*3/uL (1.4-4.0); Lymphocytes % 12.8 % (21.3-54.2); Mean Corpuscular Volume 84.4 FL (87-102); Mean Platelet Volume 9.9 FL (9.6-12.0); Monocytes % 5.5 % (1.7-12.7); NRBC # 0.22 10*3/uL; Neutrophils % 78.7 % (38.7-73.9); Platelet Count 526 T/CUMM (130-400); Red Blood Count 3.27 MC/CUMM (3.8-5.5); Red Cell Distribution Width 20.6 % (9.3-17.3); White Blood Count 9.3 T/CUMM (4-12)
[2019-08-06 05:22] LABS: Bilirubin,Total 0.4 MG/DL (0.2-1.0); Calcium 7.9 MG/DL (8.5-10.1); Osmolality,Calculated 282.1 MOS/KG (273-304); Total Protein 5.7 G/DL (6.4-8.3)
[2019-08-06 05:22] LABS: INR 1.1; PT Patient Result 11.9 SECS (9.6-12.2); Partial Thromboplastin Time 29.2 SECS (20.8-36.0)
[2019-08-06] MEDS: PROMETHAZINE INJ 25 MG in SODIUM CHLORIDE 0.9% 50 ML IV PRN (05:53)
[2019-08-06] MEDS ORDERED: ceFAZolin 1,000 MG in SYRINGE 1 EACH IV ONE (07:21)
[2019-08-06] MEDS ORDERED: LIDOCAINE 1%/EPI INJ 20 ML VIAL ONE (07:27)
[2019-08-06] MEDS ORDERED: BUPIVACAINE MPF 0.25% 30 ML VIAL ONE (07:28)
[2019-08-06] MEDS ORDERED: LACTATED RINGERS 1,000 ML IV SCH (08:00)
[2019-08-06] MEDS ORDERED: LABETALOL 20 MG/4 ML SYRINGE IV ONE ×2 (10:01→10:18)
[2019-08-06] MEDS ORDERED: LIDOCAINE 2% 5 ML VIAL ONE (10:06)
[2019-08-06] MEDS ORDERED: propofoL 200 MG/20 ML VIAL IV ONE (10:06)
[2019-08-06] MEDS ORDERED: ONDANSETRON 4 MG/2 ML VIAL ONE (10:07)
[2019-08-06] MEDS ORDERED: DEXAMETHASONE 4 MG/1 ML VIAL ONE ×2 (10:07)
[2019-08-06] MEDS ORDERED: MIDAZOLAM 2 MG/2 ML VIAL ONE (10:07)
[2019-08-06] MEDS ORDERED: fentaNYL 100 MCG/2 ML VIAL ONE ×2 (10:07→10:09)
[2019-08-06] MEDS ORDERED: SEVOFLURANE 1 UNIT/15 MINUTE INH ONE (10:07)
[2019-08-06] MEDS ORDERED: LACTATED RINGERS 1,000 ML IV ONE (10:08)
[2019-08-06] MEDS ORDERED: PHENYLEPHRINE 10 MG/1 ML VIAL IV ONE (10:08)
[2019-08-06] MEDS ORDERED: NEOSTIGMINE 10 MG/10 ML VIAL ONE (10:08)
[2019-08-06] MEDS ORDERED: SUCCINYLCHOLINE 200 MG/10 ML VIAL ONE (10:08)
[2019-08-06] MEDS ORDERED: PHENYLEPHRINE 1 MG/10 ML SYRINGE IV ONE (10:08)
[2019-08-06] MEDS ORDERED: GLYCOPYRROLATE 0.4 MG/2 ML VIAL ONE (10:08)
[2019-08-06] MEDS ORDERED: ROCURONIUM 100 MG/10 ML VIAL IV ONE (10:08)
[2019-08-06] MEDS: CIPROFLOXACIN INJ 400 MG in PREMIX 1 EACH IV SCH ×2 (12:39→21:55)
[2019-08-06] MEDS: PROMETHAZINE 25 MG/1 ML VIAL IV PRN ×2 (19:35→23:34)
[2019-08-06] MEDS: ENOXAPARIN 40 MG/0.4 ML SYRINGE SUBCUT SCH (20:49)
[2019-08-07] MEDS: HYDROmorphone 2 MG/1 ML VIAL IV PRN ×9 (03:00→22:10)
[2019-08-07] MEDS: ONDANSETRON 4 MG/2 ML VIAL IV PRN ×5 (03:02→20:11)
[2019-08-07] MEDS: DEXT 5% NACL 0.9% KCL 40 MEQ 40 MEQ/1,000 ML BAG IV SCH ×4 (03:04→23:00)
[2019-08-07] MEDS: metroNIDAZOLE INJ 500 MG in PREMIX 1 EACH IV SCH ×3 (03:09→20:10)
[2019-08-07] MEDS: hydrALAZINE 20 MG/1 ML VIAL IV PRN (04:33)
[2019-08-07 04:39] LABS: Basophils # 0.1 10*3/uL (0.0-0.2); Basophils % 0.5 % (0.0-0.8); Eosinophils # 0.1 10*3/uL (0.0-0.87); Eosinophils % 0.6 % (0.00-10.9); Hematocrit 26.7 VOL% (35.7-47.0); Hemoglobin 8.7 GM/DL (12.0-16.0); Immature Granulocytes % 0.8 %; Lymphocytes # 1.2 10*3/uL (1.4-4.0); Mean Corpuscular HGB Conc 32.6 GM/DL (32-36); Mean Corpuscular Volume 84.8 FL (87-102); Mean Platelet Volume 9.3 FL (9.6-12.0); Monocytes % 5.5 % (1.7-12.7); NRBC # 0.13 10*3/uL; Neutrophils % 82.6 % (38.7-73.9); Platelet Count 515 T/CUMM (130-400); Red Blood Count 3.15 MC/CUMM (3.8-5.5); Red Cell Distribution Width 21.2 % (9.3-17.3); White Blood Count 12.3 T/CUMM (4-12)
[2019-08-07] MEDS: PROMETHAZINE 25 MG/1 ML VIAL IV PRN (05:00)
[2019-08-07 05:20] LABS: Albumin 1.9 G/DL (3.4-5.0); Bilirubin,Total 0.9 MG/DL (0.2-1.0); Calcium 7.7 MG/DL (8.5-10.1); Osmolality,Calculated 272.7 MOS/KG (273-304); Total Protein 5.3 G/DL (6.4-8.3)
[2019-08-07] MEDS: CIPROFLOXACIN INJ 400 MG in PREMIX 1 EACH IV SCH ×2 (09:49→21:13)
[2019-08-07] MEDS: fentaNYL 100 MCG/HR PATCH TRANSDERM SCH (09:50)
[2019-08-07] MEDS: PROMETHAZINE INJ 25 MG in SODIUM CHLORIDE 0.9% 50 ML IV PRN ×3 (12:05→22:11)
[2019-08-07] MEDS: ENOXAPARIN 40 MG/0.4 ML SYRINGE SUBCUT SCH (21:13)
[2019-08-08] MEDS: HYDROmorphone 2 MG/1 ML VIAL IV PRN ×8 (03:15→21:07)
[2019-08-08] MEDS: PROMETHAZINE INJ 25 MG in SODIUM CHLORIDE 0.9% 50 ML IV PRN ×5 (03:19→22:57)
[2019-08-08] MEDS: metroNIDAZOLE INJ 500 MG in PREMIX 1 EACH IV SCH (04:04)
[2019-08-08] MEDS: ONDANSETRON 4 MG/2 ML VIAL IV PRN ×4 (05:58→21:06)
[2019-08-08] MEDS: DEXT 5% NACL 0.9% KCL 40 MEQ 40 MEQ/1,000 ML BAG IV SCH ×2 (07:02→16:32)
[2019-08-08 08:26] LABS: Basophils # 0.1 10*3/uL (0.0-0.2); Basophils % 0.4 % (0.0-0.8); Eosinophils # 0.1 10*3/uL (0.0-0.87); Eosinophils % 0.5 % (0.00-10.9); Hematocrit 27.1 VOL% (35.7-47.0); Hemoglobin 8.6 GM/DL (12.0-16.0); Immature Granulocytes Absolute 0.13 #; Lymphocytes # 1.4 10*3/uL (1.4-4.0); Lymphocytes % 11.2 % (21.3-54.2); Mean Corpuscular HGB Conc 31.7 GM/DL (32-36); Mean Corpuscular Volume 86.3 FL (87-102); Mean Platelet Volume 9.6 FL (9.6-12.0); Monocytes % 4.6 % (1.7-12.7); NRBC # 0.09 10*3/uL; Neutrophils % 82.3 % (38.7-73.9); Platelet Count 478 T/CUMM (130-400); Red Blood Count 3.14 MC/CUMM (3.8-5.5); Red Cell Distribution Width 21.1 % (9.3-17.3); White Blood Count 12.7 T/CUMM (4-12)
[2019-08-08 08:45] LABS: Bilirubin,Total 0.5 MG/DL (0.2-1.0); Calcium 7.7 MG/DL (8.5-10.1); Osmolality,Calculated 277.4 MOS/KG (273-304); Total Protein 5.7 G/DL (6.4-8.3)
[2019-08-08] MEDS: ENOXAPARIN 40 MG/0.4 ML SYRINGE SUBCUT SCH (21:07)
[2019-08-09] MEDS: ONDANSETRON 4 MG/2 ML VIAL IV PRN (01:12)
[2019-08-09] MEDS: HYDROmorphone 2 MG/1 ML VIAL IV PRN ×7 (01:12→21:18)
[2019-08-09] MEDS: DEXT 5% NACL 0.9% KCL 40 MEQ 40 MEQ/1,000 ML BAG IV SCH ×3 (04:00→14:42)
[2019-08-09 06:33] LABS: Basophils % 0.4 % (0.0-0.8); Eosinophils # 0.1 10*3/uL (0.0-0.87); Eosinophils % 0.5 % (0.00-10.9); Hematocrit 25.9 VOL% (35.7-47.0); Hemoglobin 8.4 GM/DL (12.0-16.0); Immature Granulocytes % 0.9 %; Immature Granulocytes Absolute 0.09 #; Lymphocytes # 1.2 10*3/uL (1.4-4.0); Lymphocytes % 12.9 % (21.3-54.2); Mean Corpuscular HGB Conc 32.4 GM/DL (32-36); Mean Corpuscular Volume 86.9 FL (87-102); Mean Platelet Volume 9.6 FL (9.6-12.0); Monocytes % 7.3 % (1.7-12.7); NRBC # 0.05 10*3/uL; Platelet Count 436 T/CUMM (130-400); Red Blood Count 2.98 MC/CUMM (3.8-5.5); Red Cell Distribution Width 20.9 % (9.3-17.3); White Blood Count 9.6 T/CUMM (4-12)
[2019-08-09 06:54] LABS: Calcium 7.9 MG/DL (8.5-10.1)
[2019-08-09] MEDS: PROMETHAZINE INJ 25 MG in SODIUM CHLORIDE 0.9% 50 ML IV PRN (08:17)
[2019-08-09] MEDS: PROMETHAZINE 25 MG/1 ML VIAL IV PRN ×2 (11:42→21:18)
[2019-08-09] MEDS: ENOXAPARIN 40 MG/0.4 ML SYRINGE SUBCUT SCH (21:22)
[2019-08-10] MEDS: HYDROmorphone 2 MG/1 ML VIAL IV PRN ×7 (01:00→18:41)
[2019-08-10] MEDS: DEXT 5% NACL 0.9% KCL 40 MEQ 40 MEQ/1,000 ML BAG IV SCH ×2 (01:00→10:19)
[2019-08-10] MEDS: ONDANSETRON 4 MG/2 ML VIAL IV PRN (01:00)
[2019-08-10] MEDS: fentaNYL 100 MCG/HR PATCH TRANSDERM SCH (08:45)
[2019-08-10] MEDS ORDERED: LORazepam 2 MG/1 ML VIAL IV PRN (09:29)
[2019-08-10] MEDS: SCOPOLAMINE 1.5 MG PATCH TRANSDERM SCH (10:18)
[2019-08-10] MEDS: PROMETHAZINE 25 MG/1 ML VIAL IV PRN ×2 (10:19→14:34)
[2019-08-10] MEDS: FAT EMULSION 20% 250 ML IV SCH (16:05)
[2019-08-10] MEDS: hydrALAZINE 20 MG/1 ML VIAL IV PRN (16:06)
[2019-08-10] MEDS ORDERED: TRACE ELEMENTS (5) 1 ML, MULTIVITAMIN INJ 10 ML in AMINO ACIDS/DEXT/LYTES 5-15% 1,000 ML IV SCH (17:00)
[2019-08-10] MEDS ORDERED: DEXTROSE 10% 1,000 ML IV PRN (17:00)
[2019-08-10] MEDS: ENOXAPARIN 40 MG/0.4 ML SYRINGE SUBCUT SCH (21:14)
[2019-08-11] MEDS: HYDROmorphone 2 MG/1 ML VIAL IV PRN ×6 (01:02→19:44)
[2019-08-11] MEDS: hydrALAZINE 20 MG/1 ML VIAL IV PRN (09:40)
[2019-08-11] MEDS: TRACE ELEMENTS (5) 1 ML, MULTIVITAMIN INJ 10 ML in AMINO ACIDS/DEXT/LYTES 5-15% 2,000 ML IV SCH (16:13)
[2019-08-11] MEDS: FAT EMULSION 20% 250 ML IV SCH (16:14)
[2019-08-11] MEDS: ENOXAPARIN 40 MG/0.4 ML SYRINGE SUBCUT SCH (20:42)
[2019-08-12] MEDS: ONDANSETRON 4 MG/2 ML VIAL IV PRN ×3 (00:45→21:53)
[2019-08-12] MEDS: HYDROmorphone 2 MG/1 ML VIAL IV PRN ×6 (00:53→21:57)
[2019-08-12 05:30] LABS: Calcium 8.4 MG/DL (8.5-10.1); Osmolality,Calculated 278.1 MOS/KG (273-304); Prealbumin 12.8 MG/DL (20-40)
[2019-08-12 09:28] LABS: Basophils # 0.1 10*3/uL (0.0-0.2); Basophils % 0.5 % (0.0-0.8); Eosinophils # 0.1 10*3/uL (0.0-0.87); Eosinophils % 0.5 % (0.00-10.9); Hematocrit 27.8 VOL% (35.7-47.0); Hemoglobin 9.4 GM/DL (12.0-16.0); Immature Granulocytes % 0.9 %; Immature Granulocytes Absolute 0.08 #; Lymphocytes # 1.5 10*3/uL (1.4-4.0); Lymphocytes % 16.2 % (21.3-54.2); Mean Corpuscular HGB Conc 33.8 GM/DL (32-36); Mean Corpuscular Volume 84.5 FL (87-102); Mean Platelet Volume 10.7 FL (9.6-12.0); Monocytes % 14.9 % (1.7-12.7); NRBC # 0.45 10*3/uL; Platelet Count 508 T/CUMM (130-400); Red Blood Count 3.29 MC/CUMM (3.8-5.5); Red Cell Distribution Width 21.3 % (9.3-17.3); White Blood Count 9.1 T/CUMM (4-12)
[2019-08-12] MEDS: ALUMINUM/MAGNES/SIMETH MAX STR 30 ML UDCUP PO PRN (09:47)
[2019-08-12] MEDS: POTASSIUM CHLORIDE RIDER 10 MEQ in PREMIX 1 EACH IV PRN (09:54)
[2019-08-12] MEDS: FAT EMULSION 20% 250 ML IV SCH (14:58)
[2019-08-12] MEDS: TRACE ELEMENTS (5) 1 ML, MULTIVITAMIN INJ 10 ML in AMINO ACIDS/DEXT/LYTES 5-15% 2,000 ML IV SCH (17:36)
[2019-08-12] MEDS: PROMETHAZINE INJ 25 MG in SODIUM CHLORIDE 0.9% 50 ML IV PRN (17:41)
[2019-08-12] MEDS: ENOXAPARIN 40 MG/0.4 ML SYRINGE SUBCUT SCH (22:16)
[2019-08-13] MEDS: ONDANSETRON 4 MG/2 ML VIAL IV PRN (02:33)
[2019-08-13] MEDS: HYDROmorphone 2 MG/1 ML VIAL IV PRN ×2 (02:37→10:39)
[2019-08-13 06:13] LABS: Blood Urea Nitrogen 26 MG/DL (7-18); Calcium 8.7 MG/DL (8.5-10.1); Estimated Glom Filtration Rate 55 ML/MIN; Glucose 294 MG/DL (74-106); Osmolality,Calculated 262.8 MOS/KG (273-304)
[2019-08-13] MEDS: POTASSIUM CHLORIDE RIDER 20 MEQ in PREMIX 1 EACH IV PRN ×3 (08:12→17:38)
[2019-08-13 09:20] LABS: Blood Urea Nitrogen 26 MG/DL (7-18); Calcium 9.1 MG/DL (8.5-10.1); Estimated Glom Filtration Rate 49 ML/MIN; Glucose 270 MG/DL (74-106); Osmolality,Calculated 259.9 MOS/KG (273-304)
[2019-08-13] MEDS: SCOPOLAMINE 1.5 MG PATCH TRANSDERM SCH (09:24)
[2019-08-13] MEDS: PROMETHAZINE INJ 25 MG in SODIUM CHLORIDE 0.9% 50 ML IV PRN (10:39)
[2019-08-13] MEDS: DEXT 5% NACL 0.45% KCL 40 MEQ 40 MEQ/1,000 ML BAG IV SCH ×2 (11:20→20:37)
[2019-08-13] MEDS: TRACE ELEMENTS (5) 1 ML, MULTIVITAMIN INJ 10 ML in AMINO ACIDS/DEXT/LYTES 5-15% 2,000 ML IV SCH (17:33)
[2019-08-13] MEDS: FAT EMULSION 20% 250 ML IV SCH (17:34)
[2019-08-13] MEDS: ENOXAPARIN 40 MG/0.4 ML SYRINGE SUBCUT SCH (23:00)
[2019-08-14] MEDS: HYDROmorphone 2 MG/1 ML VIAL IV PRN ×2 (00:24→14:05)
[2019-08-14 08:45] LABS: Calcium 8.3 MG/DL (8.5-10.1); Osmolality,Calculated 257.8 MOS/KG (273-304)
[2019-08-14] MEDS ORDERED: DEXT 5% NACL 0.9% KCL 40 MEQ 40 MEQ/1,000 ML BAG IV SCH (10:00)
[2019-08-14] MEDS: POTASSIUM CHLORIDE RIDER 20 MEQ in PREMIX 1 EACH IV PRN ×2 (11:28→13:51)
[2019-08-14] MEDS: DEXT 5% NACL 0.45% KCL 40 MEQ 40 MEQ/1,000 ML BAG IV SCH (11:36)
[2019-08-14] MEDS ORDERED: INSULIN REGULAR 100 UNIT/ML IV ONE (12:22)
[2019-08-14] MEDS ORDERED: DEXTROSE 10% 250 ML BAG IV PRN (12:25)
[2019-08-14] MEDS ORDERED: GLUCAGON 1 MG VIAL IM PRN (12:25)
[2019-08-14] MEDS ORDERED: SODIUM CHLORIDE 3% INJ 500 ML IV SCH (13:00)
[2019-08-14] MEDS: PROMETHAZINE 25 MG/1 ML VIAL IV PRN (13:54)
[2019-08-14] MEDS: POTASSIUM CHLORIDE RIDER 10 MEQ in PREMIX 1 EACH IV PRN ×4 (14:41→23:35)
[2019-08-14 14:53] LABS: Calcium 8.4 MG/DL (8.5-10.1); Osmolality,Calculated 257.6 MOS/KG (273-304)
[2019-08-14] MEDS: FAT EMULSION 20% 250 ML IV SCH (16:16)
[2019-08-14] MEDS: INSULIN REGULAR 100 UNIT/ML SUBCUT SCH (17:21)
[2019-08-14] MEDS: TRACE ELEMENTS (5) 1 ML, MULTIVITAMIN INJ 10 ML in AMINO ACIDS/DEXT/LYTES 5-15% 2,000 ML IV SCH (17:21)
[2019-08-14] MEDS: ENOXAPARIN 40 MG/0.4 ML SYRINGE SUBCUT SCH (21:19)
[2019-08-14] MEDS: SODIUM CHLOR 0.9% KCL 40 MEQ 40 MEQ/1,000 ML BAG IV SCH (21:19)
[2019-08-15] MEDS: INSULIN REGULAR 100 UNIT/ML SUBCUT SCH ×2 (00:45→07:15)
[2019-08-15] MEDS: POTASSIUM CHLORIDE RIDER 10 MEQ in PREMIX 1 EACH IV PRN (00:46)
[2019-08-15] MEDS: HYDROmorphone 2 MG/1 ML VIAL IV PRN ×2 (07:32→21:16)
[2019-08-15 07:39] LABS: Calcium 8.1 MG/DL (8.5-10.1)
[2019-08-15 07:40] LABS: Osmolality,Calculated 260.1 MOS/KG (273-304)
[2019-08-15 07:44] LABS: Bilirubin,Direct 0.44 MG/DL (0.0-0.20); Bilirubin,Indirect 0.5 MG/DL (0.0-1.0); Bilirubin,Total 0.9 MG/DL (0.2-1.0); Total Protein 6.5 G/DL (6.4-8.3)
[2019-08-15 07:53] LABS: Prealbumin 9.4 MG/DL (20-40)
[2019-08-15] MEDS: INSULIN GLARGINE 100 UNIT/ML SUBCUT SCH (09:18)
[2019-08-15] MEDS: INSULIN LISPRO 100 UNIT/ML SUBCUT SCH ×2 (12:21→17:41)
[2019-08-15] MEDS: FAT EMULSION 20% 250 ML IV SCH (13:35)
[2019-08-15] MEDS ORDERED: INSULIN REGULAR IV SCH (17:00)
[2019-08-15] MEDS ORDERED: [UNRECOGNIZED DRUG - OTHER] IV SCH (17:00)
[2019-08-15] MEDS ORDERED: TRACE ELEMENTS IV SCH (17:00)
[2019-08-15] MEDS ORDERED: MULTIVITAMIN IV SCH (17:00)
[2019-08-15] MEDS: SODIUM CHLOR 0.9% KCL 40 MEQ 40 MEQ/1,000 ML BAG IV SCH (20:58)
[2019-08-15] MEDS: ENOXAPARIN 40 MG/0.4 ML SYRINGE SUBCUT SCH (20:58)
[2019-08-15] MEDS: ONDANSETRON 4 MG/2 ML VIAL IV PRN (21:19)
[2019-08-16] MEDS: INSULIN LISPRO 100 UNIT/ML SUBCUT SCH ×3 (01:30→13:05)
[2019-08-16 07:00] LABS: Osmolality,Calculated 267.1 MOS/KG (273-304)
[2019-08-16] MEDS: INSULIN GLARGINE 100 UNIT/ML SUBCUT SCH (09:16)
[2019-08-16] MEDS: SCOPOLAMINE 1.5 MG PATCH TRANSDERM SCH (09:16)
[2019-08-16] MEDS: SODIUM CHLOR 0.9% KCL 40 MEQ 40 MEQ/1,000 ML BAG IV SCH (09:18)
[2019-08-16] MEDS: HYDROmorphone 2 MG/1 ML VIAL IV PRN ×2 (11:32→17:55)
[2019-08-16] MEDS: ENOXAPARIN 40 MG/0.4 ML SYRINGE SUBCUT SCH (23:18)
[2019-08-17] MEDS: HYDROmorphone 2 MG/1 ML VIAL IV PRN ×2 (04:38→09:32)
[2019-08-17] MEDS: INSULIN GLARGINE 100 UNIT/ML SUBCUT SCH (08:37)
[2019-08-17] MEDS: HYDROmorphone 2 MG/1 ML VIAL IV SCH ×5 (12:40→20:53)
[2019-08-17] MEDS: LORazepam 2 MG/1 ML VIAL IV SCH ×5 (14:39→20:16)
[2019-08-18] MEDS: HYDROmorphone 2 MG/1 ML VIAL IV SCH ×14 (00:40→23:59)
[2019-08-18] MEDS: LORazepam 2 MG/1 ML VIAL IV SCH ×13 (00:40→22:58)
[2019-08-19] MEDS: LORazepam 2 MG/1 ML VIAL IV SCH ×12 (00:55→23:10)
[2019-08-19] MEDS: HYDROmorphone 2 MG/1 ML VIAL IV SCH ×13 (01:59→23:37)
[2019-08-19] MEDS: SCOPOLAMINE 1.5 MG PATCH TRANSDERM SCH (09:14)
[2019-08-19] MEDS ORDERED: LORazepam 2 MG/1 ML VIAL IV SCH (23:30)
[2019-08-20] MEDS: HYDROmorphone 2 MG/1 ML VIAL IV SCH ×8 (00:30→07:32)
[2019-08-20] MEDS: LORazepam 2 MG/1 ML VIAL IV SCH ×4 (01:08→07:06)
[2019-08-20 07:52] VITALS: BP 53/36
== END 2019-08-20 08:33 | disposition expired | DRG 374 ==
LOC: N.ED 13:52 → N.EDINP 21:14 → N.4E 21:51
PROVIDERS: ADMIT Family Medicine; ATTEND Family Medicine